=== PATIENT | male | born 1975 | race Caucasian/White ===

== ENCOUNTER 2020-10-10 11:17 | Outpatient (REF) | payer OTHER, SELFPAY ==
[2020-10-10 12:45] LABS: Basophils Percent Auto 0.3 % (0-2); Eosinophils Absolute Auto 0.1 X10*3/uL (0.0-0.4); Eosinophils Percent Auto 1.7 % (0-4); Red Cell Distribution Width 11.9 % (11.0-16.0)
[2020-10-10 12:47] LABS: Hematocrit 44.7 % (42-52); Imm Gran Abs Auto 0.03 X10*3/uL (0.00-0.03); Imm Gran Pct Auto 0.5 % (0.0-0.4); Lymphocytes Absolute Auto 2.1 X10*3/uL (1.2-4.9); Lymphocytes Percent Auto 35.7 % (20-40); Mean Corpuscular HGB Conc 35.8 g/dl (31.0-36.0); Mean Corpuscular Hemoglobin 31.5 pg (27.0-33.0); Mean Platelet Volume 13.4 fL (9.4-12.4); Monocytes Absolute Auto 0.5 X10*3/uL (0.1-1.2); Monocytes Percent Auto 8.1 % (2-11); Neutrophils Absolute Auto 3.1 X10*3/uL (2.0-8.3); Neutrophils Percent Auto 53.7 % (45-73); Platelet Count 126 X10*3/uL (160-400); Red Blood Count 5.08 X10*6/uL (4.60-5.80); White Blood Count 5.8 X10*3/uL (4.8-10.8)
[2020-10-10 13:18] LABS: Alanine Aminotransferase 55 U/L (0-40); Albumin Level 4.4 g/dL (3.5-5.0); Alkaline Phosphatase 73 U/L (39-117); Anion Gap 12 (12-20); Aspartate Amino Transferase 24 U/L (5-37); Bilirubin Total 0.5 mg/dL (0.0-1.0); Blood Urea Nitrogen 13 mg/dL (9-16); Calcium 9.5 mg/dL (8.4-10.2); Carbon Dioxide 28 mmol/L (22-29); Chloride 104 mmol/L (96-108); Cholesterol 190 mg/dL; Estimated Glomerular Filt Rate > 60; Glucose Random 139 mg/dL (60-115); HDL Cholesterol 30 mg/dL; LDL Cholesterol Calculated 113 mg/dl; Potassium 4.6 mmol/L (3.3-5.1); Sodium 139 mmol/L (135-145); Total Protein 7.8 g/dL (6.5-8.0); Triglycerides 239 mg/dL
[2020-10-10 13:41] LABS: Free T4 (Free Thyroxine) 0.88 ng/dL (0.71-1.85); Thyroid Stimulating Hormone 1.27 uIU/mL (0.32-4.0)
[2020-10-10 14:06] LABS: Folate 14.6 ng/mL (> or = 4.0); Vitamin B12 203 pg/mL (200-900)
[2020-10-10 14:26] LABS: Estimated Average Glucose 151 mg/dL; Hemoglobin A1c % 6.9 %
== END 2020-10-10 11:18 | disposition home or self-care (01) ==
LOC: HO.LAB 11:17
PROVIDERS: PCP Internal Medicine; Visit Provider Internal Medicine
DX: R73.02 Impaired glucose tolerance (oral) (principal); E78.00 Pure hypercholesterolemia, unspecified; I10 Essential (primary) hypertension; K21.9 Gastro-esophageal reflux disease without esophagitis
CPT/HCPCS: 36415; 80053; 80061; 82607; 82746; 83036; 84439; 84443; 85025

== ENCOUNTER 2021-03-12 08:07 | Outpatient (REF) | payer OTHER, SELFPAY ==
--- NOTE | ~2021-03-12 | US_ITS ---
EXAMINATION: US ABDOMEN COMPLETE CLINICAL INFORMATION: Other specified abnormal findings of blood chemistry. COMPARISON: CT abdomen and pelvis 09/01/2018. Ultrasound abdomen 02/08/2013. TECHNIQUE: Real-time imaging of the abdominal viscera. FINDINGS: PANCREAS: Normal. ABDOMINAL AORTA: The proximal, mid, and distal segments are normal in caliber. INFERIOR VENA CAVA: Visualized portions are normal. LIVER: The liver is normal in size. The liver contour is normal. There is increased liver echogenicity with areas of focal fatty sparing. No focal hepatic lesion. There is no intrahepatic biliary duct dilatation seen. GALLBLADDER: Gallbladder wall thickness measures 0.22 cm. The gallbladder is physiologically distended without evidence of stones, sludge, polyps, wall thickening or pericholecystic fluid. Previously visualized gallbladder polyp on 02/08/2013 exam is not visualized at this time. COMMON BILE DUCT: Normal in caliber measuring 0.3 cm in diameter. RIGHT KIDNEY: There is a complex anechoic cyst lower pole measuring 2.0 x 1.6 x 1.5 cm. Previously visualize simple cyst is not visualized at this time. No hydronephrosis or renal calculi. The kidney measures 12.5 cm in maximum dimension. LEFT KIDNEY: Normal. No hydronephrosis. No renal calculi or focal parenchymal lesions. The kidney measures 12.9 cm in maximum dimension. SPLEEN: Normal. The spleen measures 13.1 cm in maximum dimension. FREE FLUID: None. US/US abdomen complete IMPRESSION: Hepatic steatosis with areas of focal fatty sparing. No intrahepatic ductal interpretation. The gallbladder is unremarkable. No polyp seen at this time. Complex cyst lower pole right kidney. Previously a simple cyst was seen and is not visualized at this time.
[2021-03-12 11:51] LABS: Estimated Average Glucose 143 mg/dL; Hemoglobin A1c % 6.6 %
[2021-03-12 12:14] LABS: Alanine Aminotransferase 60 U/L (0-40); Albumin Level 4.2 g/dL (3.5-5.0); Alkaline Phosphatase 69 U/L (39-117); Anion Gap 10 (12-20); Aspartate Amino Transferase 21 U/L (5-37); Bilirubin Total 0.4 mg/dL (0.0-1.0); Blood Urea Nitrogen 12 mg/dL (9-16); Calcium 9.8 mg/dL (8.4-10.2); Carbon Dioxide 30 mmol/L (22-29); Chloride 105 mmol/L (96-108); Cholesterol 178 mg/dL; Estimated Glomerular Filt Rate > 60; Glucose Random 133 mg/dL (60-115); HDL Cholesterol 36 mg/dL; LDL Cholesterol Calculated 104 mg/dl; Potassium 4.3 mmol/L (3.3-5.1); Sodium 141 mmol/L (135-145); Total Protein 7.7 g/dL (6.5-8.0); Triglycerides 190 mg/dL
[2021-03-12 12:17] LABS: Creatinine Urine 200.14 mg/dL; Microalbum/Creatinine Ratio Ur 8.9 ug/mg cr
[2021-03-12 12:38] LABS: Folate 12.7 ng/mL (> or = 4.0); Vitamin B12 243 pg/mL (200-900)
== END 2021-03-12 08:08 | disposition home or self-care (01) ==
LOC: HO.HMGCX 08:07
PROVIDERS: PCP Internal Medicine; Visit Provider Internal Medicine
DX: R10.11 Right upper quadrant pain (principal); R79.89 Other specified abnormal findings of blood chemistry; E11.65 Type 2 diabetes mellitus with hyperglycemia; E78.00 Pure hypercholesterolemia, unspecified; E53.8 Deficiency of other specified B group vitamins
CPT/HCPCS: 36415; 76700; 80053; 80061; 82043; 82607; 82746; 83036

== ENCOUNTER → 2021-05-27 12:40 | Outpatient (BNVA) | payer OTHER, SELFPAY | PROVIDERS: PCP Internal Medicine | DX: N28.1 Cyst of kidney, acquired (principal); R73.03 Prediabetes; I10 Essential (primary) hypertension; E78.00 Pure hypercholesterolemia, unspecified; E55.9 Vitamin D deficiency, unspecified; E66.9 Obesity, unspecified; F17.210 Nicotine dependence, cigarettes, uncomplicated; Z68.37 Body mass index [BMI] 37.0-37.9, adult | CPT/HCPCS: 99202 ==

== ENCOUNTER 2021-07-31 09:35 | Outpatient (REF) | payer OTHER, SELFPAY ==
--- NOTE | ~2021-07-31 | XR_ITS ---
Indication: Disorders of the skin EXAMINATION: Bilateral knees. 2 views of left knee and 2 views of the right knee. Left knee; There is no acute fracture or dislocation. No effusion is seen. No significant degenerative change is identified. There is no bony erosion or osteopenia. No bony lesion. 2 views of the right knee show no suspicious finding. No effusion is seen. No underlying bony erosion or osteopenia. Joint spaces are fairly well-preserved. No bony lesion. XR/XR knee LT 2V IMPRESSION: No suspicious bony finding left or right knee
--- NOTE | ~2021-07-31 | XR_ITS ---
Indication: Disorders of the skin EXAMINATION: Bilateral knees. 2 views of left knee and 2 views of the right knee. Left knee; There is no acute fracture or dislocation. No effusion is seen. No significant degenerative change is identified. There is no bony erosion or osteopenia. No bony lesion. 2 views of the right knee show no suspicious finding. No effusion is seen. No underlying bony erosion or osteopenia. Joint spaces are fairly well-preserved. No bony lesion. XR/XR knee RT 2V IMPRESSION: No suspicious bony finding left or right knee
[2021-07-31 11:27] LABS: Estimated Average Glucose 146 mg/dL; Hemoglobin A1c % 6.7 %
[2021-07-31 11:39] LABS: Creatinine Urine 227.87 mg/dL
[2021-07-31 12:02] LABS: Alanine Aminotransferase 65 U/L (0-40); Alkaline Phosphatase 69 U/L (39-117); Anion Gap 13 (12-20); Aspartate Amino Transferase 23 U/L (5-37); Bilirubin Total 0.5 mg/dL (0.0-1.0); Blood Urea Nitrogen 12 mg/dL (9-16); Calcium 9.3 mg/dL (8.4-10.2); Carbon Dioxide 23 mmol/L (22-29); Chloride 106 mmol/L (96-108); Cholesterol 149 mg/dL; Estimated Glomerular Filt Rate > 60; Glucose Random 137 mg/dL (60-115); HDL Cholesterol 28 mg/dL; LDL Cholesterol Calculated 84 mg/dl; Potassium 4.4 mmol/L (3.3-5.1); Sodium 138 mmol/L (135-145); Total Protein 7.4 g/dL (6.5-8.0); Triglycerides 185 mg/dL
== END 2021-07-31 09:36 | disposition home or self-care (01) ==
LOC: HO.LAB 09:35
PROVIDERS: PCP Internal Medicine; Visit Provider Internal Medicine
DX: E11.65 Type 2 diabetes mellitus with hyperglycemia (principal); E78.00 Pure hypercholesterolemia, unspecified; L98.9 Disorder of the skin and subcutaneous tissue, unspecified
CPT/HCPCS: 36415; 73560; 80053; 80061; 83036

== ENCOUNTER → 2021-10-22 08:50 | Outpatient (BNVA) | payer OTHER, SELFPAY | PROVIDERS: PCP Internal Medicine; Visit Provider Dietitian, Registered | DX: E11.65 Type 2 diabetes mellitus with hyperglycemia (principal); Z71.3 Dietary counseling and surveillance | CPT/HCPCS: 97802 ==

== ENCOUNTER → 2021-12-04 09:28 | Outpatient (BNVA) | payer OTHER, SELFPAY | PROVIDERS: PCP Internal Medicine; Visit Provider Dietitian, Registered | DX: E11.65 Type 2 diabetes mellitus with hyperglycemia (principal); Z71.3 Dietary counseling and surveillance | CPT/HCPCS: 97803 ==

== ENCOUNTER 2021-12-27 07:47 | Outpatient (REF) | payer OTHER, SELFPAY ==
--- NOTE | ~2021-12-27 | US_ITS ---
EXAMINATION: US RETROPERITONEAL LIMITED (RENAL ONLY) CLINICAL INFORMATION: Cyst of kidney, acquired. COMPARISON: Ultrasound abdomen complete 03/12/2021. CT abdomen and pelvis 09/01/2018. TECHNIQUE: Real-time imaging of the kidneys. FINDINGS: RIGHT KIDNEY: 12.2 x 6.8 x 7.2 cm (SAG x AP x TRV). The kidney is normal in size, contour, and echogenicity. Renal cortical thickness is normal. There is a 1.7 x 1.6 x 1.8 cm hypoechoic lesion in the lower pole. This has peripheral rim calcification and acoustic shadowing. This contains internal echoes and it is uncertain whether this represents a complex cystic or solid lesion. This does not appear appreciably changed in size from prior exams. No renal calculi or hydronephrosis. LEFT KIDNEY: 12.8 x 7.9 x 6.2 cm (SAG x AP x TRV). The kidney is normal in size, contour, and echogenicity. Renal cortical thickness is normal. No calculi or focal parenchymal lesions. No hydronephrosis. US/US renal BI IMPRESSION: 1.7 x 1.6 x 1.8 cm hypoechoic lesion in the lower pole of the right kidney with peripheral calcification and acoustic shadowing. This has internal echoes and is uncertain whether this represents a complex cyst or solid lesion. Follow-up CT or MR I of the kidneys with and without contrast recommended.
== END 2021-12-27 07:48 | disposition home or self-care (01) ==
LOC: HO.US 07:47
DX: N28.1 Cyst of kidney, acquired (principal)
CPT/HCPCS: 76775

== ENCOUNTER 2022-01-06 15:41 | Outpatient (REF) | payer OTHER, SELFPAY | END 2022-01-06 15:42 | disposition home or self-care (01) | LOC: HO.LAB 15:41 | PROVIDERS: Visit Provider Urology | DX: N28.1 Cyst of kidney, acquired (principal); N20.0 Calculus of kidney | CPT/HCPCS: 99212 ==

== ENCOUNTER 2022-01-07 10:48 | Outpatient (REF) | payer OTHER, SELFPAY ==
[2022-01-07 11:03] LABS: MANUAL DIFF FLAG NO
[2022-01-07 11:34] LABS: Basophils Percent Auto 0.4 % (0-2); Eosinophils Absolute Auto 0.1 X10*3/uL (0.0-0.4); Eosinophils Percent Auto 1.3 % (0-4); Hematocrit 43.5 % (42.0-52.0); Hemoglobin 15.4 g/dl (14.0-18.0); Imm Gran Abs Auto 0.01 X10*3/uL (0.00-0.03); Imm Gran Pct Auto 0.2 % (0.0-0.4); Lymphocytes Percent Auto 37.4 % (20-40); Mean Corpuscular HGB Conc 35.4 g/dl (31.0-36.0); Mean Corpuscular Hemoglobin 30.7 pg (27.0-33.0); Mean Corpuscular Volume 86.7 fL (80.0-98.0); Mean Platelet Volume 12.9 fL (9.4-12.4); Monocytes Absolute Auto 0.5 X10*3/uL (0.1-1.2); Monocytes Percent Auto 8.3 % (2-11); Neutrophils Absolute Auto 2.8 x10*3/uL (2.0-8.3); Neutrophils Percent Auto 52.4 % (45-73); Platelet Count 137 X10*3/uL (160-400); Red Blood Count 5.02 X10*6/uL (4.60-5.80); Red Cell Distribution Width 11.9 % (11.0-16.0); White Blood Count 5.4 X10*3/uL (4.8-10.8)
[2022-01-07 11:47] LABS: Estimated Average Glucose 171 mg/dL; Hemoglobin A1c % 7.6 %
[2022-01-07 12:04] LABS: Alanine Aminotransferase 74 U/L (0-40); Albumin Level 4.4 g/dL (3.5-5.0); Alkaline Phosphatase 74 U/L (39-117); Anion Gap 15 (12-20); Aspartate Amino Transferase 30 U/L (5-37); Bilirubin Total 0.2 mg/dL (0.0-1.0); Blood Urea Nitrogen 19 mg/dL (9-16); Calcium 9.6 mg/dL (8.4-10.2); Carbon Dioxide 25 mmol/L (22-29); Chloride 102 mmol/L (96-108); Cholesterol 176 mg/dL; Estimated Glomerular Filt Rate > 60; Glucose Random 154 mg/dL (60-115); HDL Cholesterol 34 mg/dL; LDL Cholesterol Calculated 119 mg/dl; Potassium 4.8 mmol/L (3.3-5.1); Sodium 137 mmol/L (135-145); Total Protein 7.9 g/dL (6.5-8.0); Triglycerides 117 mg/dL
[2022-01-07 12:27] LABS: Free T4 (Free Thyroxine) 0.93 ng/dL (0.71-1.85); Thyroid Stimulating Hormone 1.23 uIU/mL (0.32-4.0)
[2022-01-07 12:34] LABS: Vitamin B12 246 pg/mL (200-900)
== END 2022-01-07 10:49 | disposition home or self-care (01) ==
LOC: HO.LAB 10:48
PROVIDERS: PCP Internal Medicine; Visit Provider Internal Medicine
DX: E11.65 Type 2 diabetes mellitus with hyperglycemia (principal); E78.00 Pure hypercholesterolemia, unspecified
CPT/HCPCS: 36415; 80053; 80061; 82607; 82746; 83036; 84439; 84443; 85025

== ENCOUNTER 2022-01-22 13:30 | Outpatient (REF) | payer OTHER, SELFPAY | END 2022-01-22 13:31 | disposition home or self-care (01) | LOC: HO.MRI 13:30 | PROVIDERS: Visit Provider Urology | DX: Z13.89 Encounter for screening for other disorder (principal) ==

== ENCOUNTER → 2022-02-20 15:19 | Outpatient (BNVA) | payer OTHER, SELFPAY | PROVIDERS: PCP Internal Medicine; Visit Provider Urology | DX: N28.1 Cyst of kidney, acquired (principal) | CPT/HCPCS: Q3014 ==

== ENCOUNTER 2022-11-28 11:38 | Outpatient (REF) | payer OTHER, SELFPAY ==
[2022-11-28 14:01] LABS: Alanine Aminotransferase 108 U/L (0-40); Albumin Level 4.5 g/dL (3.5-5.0); Alkaline Phosphatase 70 U/L (39-117); Anion Gap 15 (12-20); Aspartate Amino Transferase 55 U/L (5-37); Bilirubin Total 0.6 mg/dL (0.0-1.0); Blood Urea Nitrogen 11 mg/dL (9-16); Calcium 9.9 mg/dL (8.4-10.2); Carbon Dioxide 25 mmol/L (22-29); Chloride 102 mmol/L (96-108); Cholesterol 161 mg/dL (<200); Estimated Glomerular Filt Rate > 60; Glucose Random 182 mg/dL (60-115); HDL Cholesterol 35 mg/dL (>40); LDL Cholesterol Calculated 87 mg/dL (<100); Potassium 4.7 mmol/L (3.3-5.1); Sodium 137 mmol/L (135-145); Total Protein 8.3 g/dL (6.5-8.0); Triglycerides 198 mg/dL (<150)
[2022-11-28 14:10] LABS: Estimated Average Glucose 200 mg/dL; Hemoglobin A1c % 8.6 % (<6.0)
== END 2022-11-28 11:39 | disposition home or self-care (01) ==
LOC: HO.LAB 11:38
PROVIDERS: PCP Internal Medicine; Visit Provider Internal Medicine
DX: E78.00 Pure hypercholesterolemia, unspecified (principal)
CPT/HCPCS: 36415; 80053; 80061; 83036

== ENCOUNTER 2022-11-28 15:37 | Outpatient (AMB) | payer OTHER, SELFPAY ==
[2022-11-28 15:44] VITALS: BP 148/70; PULSE 77; O2SAT 99; BMI 39.0
--- NOTE | 2022-11-28 15:44 | MHC.PC.OV ---
Vital Signs 11/28/22 15:44 Height 5 ft 10 in Weight 272 lb BMI 39.0 BP 148/70 H Blood Pressure Location Lt brachial Position Sitting Pulse 77 Pulse Source Pulse Oximeter Pulse Oximetry (%) 99 Oxygen Delivery Method Room Air Intake Visit Reasons: DM [employer] Tech: Not Required per policy Accompanied by: Self / Same As Patient Allergies metformin Adverse Reaction (Intermediate, Verified 11/28/22 15:45) Diarrhea Medication List - Last Reconciled 11/28/22 by Devan Claros MD alprazolam 0.5 mg PO DAILY PRN blood pressure monitor (Blood Pressure Kit) As directed blood sugar diagnostic (FreeStyle Lite Strips) As directed check the BS QD blood-glucose meter (FreeStyle Lite Meter kit) As directed bupropion HCl (Wellbutrin XL) 150 mg PO QAM 30 days citalopram 20 mg PO DAILY 90 days cyanocobalamin (vitamin B-12) 1,000 mcg PO DAILY 90 days diclofenac sodium 1% (Voltaren Arthritis Pain) 4 grams topical QID empagliflozin (Jardiance) 10 mg PO DAILY glipizide ER 10 mg PO DAILY lancets (FreeStyle Lancets) As directed check BS QD lisinopril 30 mg PO DAILY meloxicam 15 mg PO DAILY omeprazole 20 mg PO DAILY sennosides-docusate sodium 8.6-50 mg (Senna-S) 1 tab-cap PO BEDTIME 90 days trazodone 50 mg PO BEDTIME PRN Tobacco use date assessed: 04/28/22 Dental Screening Dental Screen Date: 11/28/22 Did you have a dental visit in the last 12 months?: Yes Did you have a dental problem in the last 6 months where you did not have access to dental care?: No Was dental information given to patient?: Patient has dentist HPI DM HPI Details 47-year-old obese male with diabetes mellitus GERD hypertension hypercholesterolemia last seen in August 2022. Patient is here for follow-up. stopped soda- still eating honeybuns, drinking 3 coffee. decline increase in BP med PFSH Medical History Lumbar degenerative disc disease Vitamin D deficiency Tobacco abuse GERD (gastroesophageal reflux disease) Hypertension Hypercholesterolemia Obesity (BMI 30-39.9) Surgical History History of rectal surgery Family History Father Lung cancer Alcohol abuse Social History Housing: House Alcohol intake: never Patient Tobacco Use Status: Former Tobacco user Tobacco use type: Cigarette Cigarette Packs Per Day: 1 e-Cigarette/Vaping Use: Never Used Second Hand Smoke Exposure: Yes service: No Current occupational status: employed Cognitive needs: No Hearing needs: No Vision needs: Yes (reading glasses) Questionnaire PHQ-9 Over the last 2 weeks, how often have you been bothered by any of the following problems? 1. Little interest or pleasure in doing things: more than half the days 2. Feeling down, depressed, or hopeless: more than half the days 3. Trouble falling or staying asleep, or sleeping too much: more than half the days 4. Feeling tired or having little energy: more than half the days 5. Poor appetite or overeating: not at all 6. Feeling bad about yourself - or that you are a failure or have let yourself or your family down: not at all 7. Trouble concentrating on things, such as reading the newspaper or watching television: not at all 8. Moving or speaking so slowly that other people could have noticed. Or the opposite - being so fidgety or restless that you have been moving around a lot more than usual: not at all 9. Thoughts that you would be better off or of hurting yourself in some way: not at all Total score: 8 Depression Screening Interpretation: Positive Source: Developed by Drs. Ezequiel Esqueda, Alejandra Rodriguez, Neel Yanez and colleagues, with an educational jayme from [employer]. Thrive Questionnaire Date Thrive assessed: 04/28/22 AUDIT C Alcohol Use Questionnaire (AUDIT-C) 1. How often do you have a drink containing alcohol?: Never 3. How often do you have six or more drinks on one occasion?: Never Total Score: 0 STEPH-7 AMB Questionnaire STEPH-7 Date STEPH - 7 assessed: 04/28/22 Source: Developed by Drs. Ezequiel Esqueda, Alejandra B.Neel Voss and colleagues, with an educational jayme from [employer]. Physical exam (Primary Care) Vital Signs: Last Vital Signs Pulse 77 11/28/22 15:44 BP 148/70 H 11/28/22 15:44 Pulse Ox 99 11/28/22 15:44 Oxygen Delivery Method Room Air 11/28/22 15:44 BMI result Body Mass Index 39.0 Tobacco/Smoking Status: Tobacco use Status Tobacco use date assessed 04/28/22 11/28/22 15:45 Patient Tobacco Use Status Former Tobacco user 11/28/22 15:45 Tobacco use type Cigarette 11/28/22 15:45 e-Cigarette/Vaping Use Never Used 11/28/22 15:45 PHQ-9: PHQ-9 Score PHQ-9: Total score 8 11/28/22 15:45 Depression Screening Interpretation: Positive Thrive Assessment: Date of Thrive Assessment Date Thrive assessed 04/28/22 11/28/22 15:45 Const General: alert; No acute distress Eyes Conjunctivae: conjunctivae normal Resp Auscultation: clear to auscultation bilaterally Cardio Rate: regular rate Rhythm: regular rhythm GI Inspection: Yes normal to inspection Extrem General: Yes normal to inspection and No edema Assessment and Plan Assessment & Plan (1) Type 2 diabetes mellitus with hyperglycemia: Code(s): E11.65 - Type 2 diabetes mellitus with hyperglycemia Plan: Decrease the amount of carbohydrate intake, pasta, bread, rice and potatoes are all sugar and that is aside from all the sweet stuff, remember that fruits are good but they are Sweet also. Hemoglobin A1c goal of less than 6.5. Patient is presently on glipizide 10 mg once a day only (2) GERD (gastroesophageal reflux disease): Code(s): K21.9 - Gastro-esophageal reflux disease without esophagitis Qualifiers: Esophagitis presence: without esophagitis Qualified Code(s): K21.9 - Gastro-esophageal reflux disease without esophagitis Plan: Avoid the foods that causes that usually spicy foods, tomato products, juices, coffee, soda and foods that your sensitive to. After eating do not lie down, allow 3-4 hours before in lie down. And keep the head of bed above 30 degrees to avoid the acid from going up. On omeprazole (3) Hypertension: Code(s): I10 - Essential (primary) hypertension Qualifiers: Hypertension type: essential hypertension Qualified Code(s): I10 - Essential (primary) hypertension Plan: Continue with blood pressure medication. Decrease salt intake and exercise patient is taking lisinopril 30 mg once a day (4) Hypercholesterolemia: Code(s): E78.00 - Pure hypercholesterolemia, unspecified Plan: Avoid fried foods, chicken skin, eggs, butter margarine, pastries and meat. Be it pork or beef they have a lot of cholesterol LDL goal of less than 100. On atorvastatin 10 mg once a day (5) Obesity (BMI 30-39.9): Code(s): E66.9 - Obesity, unspecified Plan: Diet and exercise (6) Generalized anxiety disorder: Comment: Patient did talk to the therapist but due to cost has stop(April 2022) Code(s): F41.1 - Generalized anxiety disorder Plan: Continue with therapy discussed the importance of counseling (7) Fatty liver: Code(s): K76.0 - Fatty (change of) liver, not elsewhere classified Plan: Low-fat diet and exercise (8) Colon cancer screening: Code(s): Z12.11 - Encounter for screening for malignant neoplasm of colon Orders: Referrals Gastroenterology Referral K21.9 - Gastro-esophageal reflux disease without esophagitis, Z12.11 - Encounter for screening for malignant neoplasm of colon Medications: New empagliflozin (Jardiance) 10 mg PO DAILY 30 tabs 5RF E11.65 - Type 2 diabetes mellitus with hyperglycemia Changed From lisinopril 30 mg PO DAILY 90 tabs 1RF I10 - Essential (primary) hypertension To lisinopril 40 mg PO DAILY 90 tabs 1RF I10 - Essential (primary) hypertension Refilled citalopram 20 mg PO DAILY 90 days 90 tabs 1RF F32.9 - Major depressive disorder, single episode, unspecified, F41.9 - Anxiety disorder, unspecified Discontinued atorvastatin Discontinued Reason: Patient Refused 10 mg PO BEDTIME 90 tabs 1RF E78.00 - Pure hypercholesterolemia, unspecified Coding Level of Care Code Est Pt Level 4 (52699) Diagnoses Type 2 diabetes mellitus with hyperglycemia E11.65 Gastroesophageal reflux disease without esophagitis K21.9 Esophagitis presence: without esophagitis Essential hypertension I10 Hypertension type: essential hypertension Hypercholesterolemia E78.00 Obesity (BMI 30-39.9) E66.9 Generalized anxiety disorder F41.1 Fatty liver K76.0 Colon cancer screening Z12.11
== END 2022-11-28 16:47 | disposition home or self-care (01) ==
PROVIDERS: PCP Internal Medicine; Visit Provider Internal Medicine
DX: E11.65 Type 2 diabetes mellitus with hyperglycemia (principal); K21.9 Gastro-esophageal reflux disease without esophagitis; I10 Essential (primary) hypertension; Z68.39 Body mass index [BMI] 39.0-39.9, adult; E78.00 Pure hypercholesterolemia, unspecified; F41.1 Generalized anxiety disorder; E66.9 Obesity, unspecified; K76.0 Fatty (change of) liver, not elsewhere classified; Z12.11 Encounter for screening for malignant neoplasm of colon
CPT/HCPCS: 99214

== ENCOUNTER 2023-03-13 15:34 | Outpatient (AMB) | payer OTHER, SELFPAY ==
--- NOTE | 2023-03-13 15:41 | MHC.PC.OV ---
Vital Signs 03/13/23 15:42 Height 5 ft 10 in Weight 276 lb BMI 39.6 BP 140/80 H Blood Pressure Location Lt brachial Position Sitting Pulse 71 Pulse Source Pulse Oximeter Temp Source Skin Pulse Oximetry (%) 97 Oxygen Delivery Method Room Air Intake Visit Reasons: 3 Months F/U-DM Allergies metformin Adverse Reaction (Intermediate, Verified 11/28/22 15:45) Diarrhea Medication List - Last Reconciled 03/13/23 by Devan Patel Po, alprazolam 0.5 mg PO DAILY PRN blood pressure monitor (Blood Pressure Kit) As directed blood sugar diagnostic (FreeStyle Lite Strips) As directed check the BS QD blood-glucose meter (FreeStyle Lite Meter kit) As directed bupropion HCl (Wellbutrin XL) 150 mg PO QAM 30 days citalopram 40 mg PO DAILY 90 days cyanocobalamin (vitamin B-12) 1,000 mcg PO DAILY 90 days diclofenac sodium 1% (Voltaren Arthritis Pain) 4 grams topical QID empagliflozin 25 mg PO DAILY famotidine (Pepcid) 20 mg PO BEDTIME glipizide ER 10 mg PO DAILY lancets (FreeStyle Lancets) As directed check BS QD lisinopril 40 mg PO DAILY meloxicam 15 mg PO DAILY sennosides-docusate sodium 8.6-50 mg (Senna-S) 1 tab-cap PO BEDTIME 90 days trazodone 50 mg PO BEDTIME PRN Tobacco use date assessed: 03/13/23 HPI 3 Months F/U-DM HPI Details 47-year-old obese male with diabetes mellitus GERD hypertension hypercholesterolemia and generalized anxiety disorder last seen in November 2022. Patient is here for follow-up. states GI did not remind patient. Due to indiscriminate eating patient's weight coming up as well as blood sugars discussed the need to exercise regularly discussed the need to stop drinking soda as well as choose the foods to eat. [facility] Medical History Lumbar degenerative disc disease Vitamin D deficiency Tobacco abuse GERD (gastroesophageal reflux disease) Hypertension Hypercholesterolemia Obesity (BMI 30-39.9) Surgical History History of rectal surgery Family History Father Lung cancer Alcohol abuse Social History Housing: House Alcohol intake: never Patient Tobacco Use Status: Former Tobacco user Tobacco use type: Cigarette Cigarette Packs Per Day: 1 e-Cigarette/Vaping Use: Never Used Second Hand Smoke Exposure: Yes service: No Current occupational status: employed Cognitive needs: No Hearing needs: No Vision needs: Yes (reading glasses) Questionnaire PHQ-9 Over the last 2 weeks, how often have you been bothered by any of the following problems? 1. Little interest or pleasure in doing things: more than half the days 2. Feeling down, depressed, or hopeless: more than half the days 3. Trouble falling or staying asleep, or sleeping too much: nearly every day (trouble sleeping) 4. Feeling tired or having little energy: several days 5. Poor appetite or overeating: several days 6. Feeling bad about yourself - or that you are a failure or have let yourself or your family down: not at all 7. Trouble concentrating on things, such as reading the newspaper or watching television: several days 8. Moving or speaking so slowly that other people could have noticed. Or the opposite - being so fidgety or restless that you have been moving around a lot more than usual: not at all 9. Thoughts that you would be better off or of hurting yourself in some way: not at all Total score: 10 Depression Screening Interpretation: Positive Depression Screening Done: Yes Source: Developed by Drs. Ezequiel Esqueda, Alejandra Rodriguze, Neel Yanez and colleagues, with an educational jayme from [employer]. Thrive Questionnaire Date Thrive assessed: 04/28/22 STEPH-7 AMB Questionnaire STEPH-7 Date STEPH - 7 assessed: 03/13/23 Feeling nervous, anxious, or on edge: 1 = Several days Not being able to stop or control worryin = Several days Worrying too much about different things: 1 = Several days Trouble relaxin = Several days Being so restless that it is hard to sit still: 1 = Several days Becoming easily annoyed or irritable: 1 = Several days Source: Developed by Drs. Ezequiel Esqueda, Alejandra Rodriguez, Neel Yanez and colleagues, with an educational jayme from [employer]. Physical exam (Primary Care) Vital Signs: Last Vital Signs Pulse 71 03/13/23 15:42 BP 140/80 H 03/13/23 15:42 Pulse Ox 97 03/13/23 15:42 Oxygen Delivery Method Room Air 03/13/23 15:42 BMI result Body Mass Index 39.6 Tobacco/Smoking Status: Tobacco use Status Tobacco use date assessed 03/13/23 03/13/23 15:49 Patient Tobacco Use Status Former Tobacco user 03/13/23 15:41 Tobacco use type Cigarette 03/13/23 15:41 e-Cigarette/Vaping Use Never Used 03/13/23 15:41 PHQ-9: PHQ-9 Score PHQ-9: Total score 10 03/13/23 15:49 Depression Screening Interpretation: Positive Thrive Assessment: Date of Thrive Assessment Date Thrive assessed 04/28/22 03/13/23 15:41 Const General: alert; No acute distress Eyes Conjunctivae: conjunctivae normal Resp Auscultation: clear to auscultation bilaterally Cardio Rate: regular rate Rhythm: regular rhythm GI Inspection: Yes normal to inspection Extrem General: Yes normal to inspection and No edema Results AMB Hemoglobin A1c AMB Hemoglobin A1c 9.0 % Last Edit by NAYANA Jarquin on 03/13/23 15:50 Results Reviewed Results Reviewed: Laboratory Last Values Hgb A1c (Clinic) 9.0 % (4.0-6.0) H 03/13/23 15:41 Assessment and Plan Assessment & Plan (1) Colon cancer screening: Code(s): Z12.11 - Encounter for screening for malignant neoplasm of colon Plan: Patient was scheduled with the mixing machine feeder but did not show up. Reminded and patient was given the telephone number of gastroenterology (2) Type 2 diabetes mellitus with hyperglycemia: Code(s): E11.65 - Type 2 diabetes mellitus with hyperglycemia Plan: Decrease the amount of carbohydrate intake, pasta, bread, rice and potatoes are all sugar and that is aside from all the sweet stuff, remember that fruits are good but they are Sweet also. Hemoglobin A1c goal of less than 6.5 patient is presently on glipizide 10 mg once a day patient had diarrhea with metformin.. Increase Jardiance 25 mg once a day advised patient to keep well hydrated and eat better. (3) Hypertension: Code(s): I10 - Essential (primary) hypertension Qualifiers: Hypertension type: essential hypertension Qualified Code(s): I10 - Essential (primary) hypertension Plan: Continue with blood pressure medication. Decrease salt intake and exercise patient takes lisinopril 40 mg once a day (4) Hypercholesterolemia: Code(s): E78.00 - Pure hypercholesterolemia, unspecified Plan: Avoid fried foods, chicken skin, eggs, butter margarine, pastries and meat. Be it pork or beef they have a lot of cholesterol LDL goal of less than 100 and triglyceride of less than 150 November 2022 at goal (5) Obesity (BMI 30-39.9): Code(s): E66.9 - Obesity, unspecified Plan: Diet and exercise (6) Generalized anxiety disorder: Comment: Patient did talk to the therapist but due to cost has stop(April 2022) Code(s): F41.1 - Generalized anxiety disorder Plan: Patient has stopped counseling and would like to just remain on the medications. Discussed about aerobic exercise to get mind off of anxiety Orders: Orders AMB Hemoglobin A1c Today E11.65 - Type 2 diabetes mellitus with hyperglycemia Medications: New famotidine (Pepcid) 20 mg PO BEDTIME 30 tabs 4RF K21.9 - Gastro-esophageal reflux disease without esophagitis Changed From empagliflozin (Jardiance) 10 mg PO DAILY 30 tabs 5RF E11.65 - Type 2 diabetes mellitus with hyperglycemia To empagliflozin 25 mg PO DAILY 30 tabs 5RF E11.65 - Type 2 diabetes mellitus with hyperglycemia From citalopram 20 mg PO DAILY 90 days 90 tabs 1RF F32.9 - Major depressive disorder, single episode, unspecified, F41.9 - Anxiety disorder, unspecified To citalopram 40 mg PO DAILY 90 days 90 tabs 1RF F32.9 - Major depressive disorder, single episode, unspecified, F41.9 - Anxiety disorder, unspecified Refilled trazodone 50 mg PO BEDTIME PRN 90 tabs 3RF sleep G47.00 - Insomnia, unspecified Discontinued omeprazole Discontinued Reason: Change Referral Type 20 mg PO DAILY 90 caps 1RF K21.9 - Gastro-esophageal reflux disease without esophagitis Coding Level of Care Code Est Pt Level 4 (32563) Diagnoses Colon cancer screening Z12.11 Type 2 diabetes mellitus with hyperglycemia E11.65 Essential hypertension I10 Hypertension type: essential hypertension Hypercholesterolemia E78.00 Obesity (BMI 30-39.9) E66.9 Generalized anxiety disorder F41.1
[2023-03-13 15:42] VITALS: BP 140/80; PULSE 71; O2SAT 97; BMI 39.6
== END 2023-03-13 16:26 | disposition home or self-care (01) ==
PROVIDERS: PCP Internal Medicine; Visit Provider Internal Medicine
DX: E11.65 Type 2 diabetes mellitus with hyperglycemia (principal); E66.9 Obesity, unspecified; Z12.11 Encounter for screening for malignant neoplasm of colon; Z68.39 Body mass index [BMI] 39.0-39.9, adult; I10 Essential (primary) hypertension; E78.00 Pure hypercholesterolemia, unspecified; F41.1 Generalized anxiety disorder
CPT/HCPCS: 83036; 99214

== ENCOUNTER 2023-05-11 12:17 | Outpatient (AMB) | payer OTHER, SELFPAY ==
--- NOTE | 2023-05-11 12:25 | A.OFFVIS_ITS ---
Intake Vital Signs 05/11/23 12:27 Height 5 ft 10 in Weight 265 lb BMI 38.0 BP 146/70 H Blood Pressure Location Lt brachial Position Sitting Pulse 77 Intake Visit Reasons: Colonoscopy Screening Intake Note: Patient 1st pre Colonoscopy screening. Patient abdominal pain with bloating, heartburn with burning sensation, and denies any other GI issues. 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 Accompanied by: Self / Same As Patient Allergies metformin Adverse Reaction (Intermediate, Verified 05/11/23 12:25) Diarrhea HPI HPI Comments History of Present Illness Details 47-year-old male referred for index scre ening colonoscopy He has an inconsistent bowel pattern-with bowel regimen-abdominal bloating- Jardiance- loose stool History of anal fissures He has a good appetite-acid reflux famotidine-has a lot of acid-he drinks a lot of soda- especially coke- with sugar He has anxiety-he says he freaks himself out alot- hes flying to [place] tomorrow- seeing-pcp No cardiac or respiratory issues No nausea, vomiting hematemesis, hematochezia fever chills [facility] Medical History (Updated 05/11/23 @ 13:25 by Kelly Lambert PA-C) Lumbar degenerative disc disease Vitamin D deficiency Tobacco abuse GERD (gastroesophageal reflux disease) Hypertension Hypercholesterolemia Obesity (BMI 30-39.9) Surgical History History of rectal surgery Family History Father Lung cancer Alcohol abuse Social History Housing: House Alcohol intake: never Patient Tobacco Use Status: Former Tobacco user Tobacco use type: Cigarette Cigarette Packs Per Day: 1 e-Cigarette/Vaping Use: Never Used Second Hand Smoke Exposure: Yes service: No Current occupational status: employed Cognitive needs: No Hearing needs: No Vision needs: Yes (reading glasses) Review of Systems Const All systems reviewed & are unremarkable except as noted in HPI and below Card Denies chest pain and Denies dyspnea Resp Denies dyspnea GI Reports abdominal pain, Denies hematochezia, Reports constipation, Reports heartburn, Denies diarrhea, Reports nausea and Denies vomiting Psych Reports anxiety Physical Exam Vital Signs: Last Vital Signs Pulse 77 05/11/23 12:27 BP 146/70 H 05/11/23 12:27 BMI result Body Mass Index 38.0 Const General: cooperative, healthy appearing, comfortable and anxious Orientation/consciousness: patient oriented x3 Limitations: language barrier Eyes Sclerae: sclerae normal Resp Effort & Inspection: normal respiratory effort and able to speak in complete sentences Auscultation: clear to auscultation bilaterally, no rales, no rhonchi and no wheezes Cardio Rate: regular rate Rhythm: regular rhythm Heart sounds: S1 normal heart sound present and S2 normal heart sound present GI Palpation (GI): Soft to palpation and nontender Auscultation: normal bowel sounds Skin General skin exam: no rashes or lesions noted Neuro General: patient oriented x3 Extrem General: Yes full ROM Psych Appearance: grossly normal and well kempt Mental Status: mental status grossly normal Speech and movement: Normal speech and movement present Affect: Animated affect present and Anxious affect present Attitude: cooperative Assessment & Plan Assessment & Plan (1) GERD (gastroesophageal reflux disease): Comment: Reflux precautions reviewed EGDr/o PUD, nonulcer dyspepsia, esophagitis other endoscopic findings to account for her symptoms Code(s): K21.9 - Gastro-esophageal reflux disease without esophagitis Qualifiers: Esophagitis presence: without esophagitis Qualified Code(s): K21.9 - Gastro-esophageal reflux disease without esophagitis Plan: EGD PPI Reflux precautions (2) Constipation: Comment: Inconsistent stool pattern Code(s): K59.00 - Constipation, unspecified Plan: Maintain high-fiber diet High-fiber supplement (3) Encounter for screening colonoscopy: Code(s): Z12.11 - Encounter for screening for malignant neoplasm of colon Plan: Index screening colonoscopy Plan EGD/ colon-no diabetes medications morning of Jardiance-stop x 3 days prior Please review med list before procedure prep day- ppi anti gas Orders: Orders EGD/Parmelee Combo - GI Use Only Today K21.9 - Gastro-esophageal reflux disease without esophagitis, Z12.11 - Encounter for screening for malignant neoplasm of colon Medications: New polyethylene glycol 3350 (Miralax) Take as directed by mouth the day before your procedure. 238 grams PO ONCE 1 day PRN 238 grams 0RF laxative effect bisacodyl (Dulcolax (bisacodyl)) Day before procedure @ 12 noon Take 4 tablets by mouth followed by large glass of water 20 mg (4 x 5 mg) PO ONCE 1 day PRN 4 tabs 0RF colonoscopy prep Z12.11 - Encounter for screening for malignant neoplasm of colon pantoprazole 20 mg PO QAM 30 tabs 6RF simethicone (Gas Relief (simethicone)) 125 mg PO TID-QID PRN 90 tabs 2RF abdominal distention Patient Instructions: Maintain high-fiber diet Fiber supplement Reflux precautions reviewed Dietary modifications-discussed at length Omeprazole 20 mg daily-on empty stomach Simethicone-avoid culprits to include soda-certainly will have adverse effects with diabetes EGD and colonoscopy MiraLax Gatorade prep Omit Jardiance for 3 days prior As well no other diabetes medications morning See PCP re anxiety Encouraged to call with questions or concerns Coding Level of Care Code New Pt Level 3 (20015) Diagnoses Gastroesophageal reflux disease without esophagitis K21.9 Esophagitis presence: without esophagitis Constipation K59.00 Encounter for screening colonoscopy Z12.11 Time Spent (min) 30
[2023-05-11 12:27] VITALS: BP 146/70; PULSE 77; BMI 38.0
== END 2023-05-11 13:15 | disposition home or self-care (01) ==
PROVIDERS: PCP Internal Medicine; Visit Provider Physician Assistant
DX: K21.9 Gastro-esophageal reflux disease without esophagitis (principal); K59.00 Constipation, unspecified; Z12.11 Encounter for screening for malignant neoplasm of colon
CPT/HCPCS: 99203

== ENCOUNTER → 2023-05-11 12:17 | Outpatient (BNVA) | payer OTHER, SELFPAY | PROVIDERS: PCP Internal Medicine; Visit Provider Physician Assistant | DX: Z12.11 Encounter for screening for malignant neoplasm of colon (principal); K21.9 Gastro-esophageal reflux disease without esophagitis; K59.00 Constipation, unspecified | CPT/HCPCS: 99202 ==

== ENCOUNTER 2023-06-15 10:55 | Outpatient (AMB) | payer OTHER, SELFPAY ==
[2023-06-15 11:02] VITALS: BP 162/88; PULSE 87; O2SAT 98; BMI 38.3
--- NOTE | 2023-06-15 11:02 | MHC.PC.OV ---
Vital Signs 06/15/23 11:02 Height 5 ft 10 in Weight 267 lb BMI 38.3 BP 162/88 H Blood Pressure Location Lt brachial Position Sitting Pulse 87 Pulse Source Pulse Oximeter Pulse Oximetry (%) 98 Oxygen Delivery Method Room Air Intake Visit Reasons: 3mth f/u Allergies metformin Adverse Reaction (Intermediate, Verified 06/15/23 11:02) Diarrhea Medication List - Last Reconciled 06/15/23 by Devan Claros, alprazolam 0.5 mg PO DAILY PRN bisacodyl (Dulcolax (bisacodyl)) 20 mg (4 x 5 mg) PO ONCE PRN 1 day blood pressure monitor (Blood Pressure Kit) As directed blood sugar diagnostic (FreeStyle Lite Strips) As directed check the BS QD blood-glucose meter (FreeStyle Lite Meter kit) As directed bupropion HCl XL (Wellbutrin XL) 150 mg PO QAM 30 days citalopram 40 mg PO DAILY 90 days cyanocobalamin (vitamin B-12) 1,000 mcg PO DAILY 90 days diclofenac sodium 1% (Voltaren Arthritis Pain) 4 grams topical QID empagliflozin 25 mg PO DAILY famotidine (Pepcid) 20 mg PO BEDTIME glipizide ER 10 mg PO DAILY lancets (FreeStyle Lancets) As directed check BS QD lisinopril 40 mg PO DAILY meloxicam 15 mg PO DAILY pantoprazole 20 mg PO QAM polyethylene glycol 3350 (Miralax) 238 grams PO ONCE PRN 1 day sennosides-docusate sodium 8.6-50 mg (Senna-S) 1 tab-cap PO BEDTIME 90 days simethicone (Gas Relief (simethicone)) 125 mg PO TID-QID PRN trazodone 50 mg PO BEDTIME PRN Tobacco use date assessed: 03/13/23 Dental Screening Dental Screen Date: 06/15/23 Did you have a dental visit in the last 12 months?: Yes Did you have a dental problem in the last 6 months where you did not have access to dental care?: No Was dental information given to patient?: Patient has dentist HPI 3mth f/u HPI Details 47-year-old obese male with uncontrolled diabetes mellitus hypertension hypercholesterolemia generalized anxiety disorder last seen in March 2023. Patient was referred Gastroenterology for colon cancer screening. Patient's schedule with the Gastroenterology for colon test in September 2023. Meanwhile the last complete blood work was done in November for diabetes. patient was not taking glipizide and just noted 3 weeks ago start with glipizide. advised to monitor the BP right now patient is very anxious continues to have indiscriminate eating like drinking soda and discussed importance of avoiding this discussed patient about exercise discussed patient about eating healthy and keeping active in avoiding certain things. [facility] Medical History (Updated 06/15/23 @ 11:43 by Devan Claros MD) Colon cancer screening Encounter for screening colonoscopy Lumbar degenerative disc disease Vitamin D deficiency Tobacco abuse GERD (gastroesophageal reflux disease) Hypertension Hypercholesterolemia Obesity (BMI 30-39.9) Surgical History History of rectal surgery Family History Father Lung cancer Alcohol abuse Social History Housing: House Alcohol intake: never Patient Tobacco Use Status: Former Tobacco user Tobacco use type: Cigarette Cigarette Packs Per Day: 1 e-Cigarette/Vaping Use: Never Used Second Hand Smoke Exposure: Yes service: No Current occupational status: employed Cognitive needs: No Hearing needs: No Vision needs: Yes (reading glasses) Questionnaire PHQ-9 Over the last 2 weeks, how often have you been bothered by any of the following problems? 1. Little interest or pleasure in doing things: more than half the days 2. Feeling down, depressed, or hopeless: more than half the days 3. Trouble falling or staying asleep, or sleeping too much: nearly every day (trouble sleeping) 4. Feeling tired or having little energy: several days 5. Poor appetite or overeating: several days 6. Feeling bad about yourself - or that you are a failure or have let yourself or your family down: not at all 7. Trouble concentrating on things, such as reading the newspaper or watching television: several days 8. Moving or speaking so slowly that other people could have noticed. Or the opposite - being so fidgety or restless that you have been moving around a lot more than usual: not at all 9. Thoughts that you would be better off or of hurting yourself in some way: not at all Total score: 10 Depression Screening Interpretation: Positive Depression Screening Done: Yes Source: Developed by Drs. Ezequiel Esqueda, Alejandra Rodriguez, Neel Yanez and colleagues, with an educational jayme from [employer]. Thrive Questionnaire Date Thrive assessed: 06/15/23 I am a: Patient What is your living situation today?: I have a steady place to live Within the past 12 months, did the food you bought not last and you didn't have the money to get more?: Never true Within the past 12 months, did you worry whether your food would run out before you got money to buy more?: Never true Do you have trouble paying for medicines?: No Do you have trouble getting transportation to medical appointments?: No Do you have trouble paying your heating and electricity bill?: No Do you have trouble taking care of your child, family member or friend?: No Do you have trouble with day-to-day activities such as bathing, preparing meals, shopping, managing finances, etc.?: No Are you currently unemployed and looking for a job?: No Are you interested in more education?: No Currently or been in a relationship where the following occur: no concerns reported THRIVE Score: 0 AUDIT C Alcohol Use Questionnaire (AUDIT-C) 1. How often do you have a drink containing alcohol?: Never 3. How often do you have six or more drinks on one occasion?: Never Total Score: 0 STEPH-7 AMB Questionnaire STEPH-7 Date STEPH - 7 assessed: 06/15/23 Feeling nervous, anxious, or on edge: 1 = Several days Not being able to stop or control worryin = Several days Worrying too much about different things: 1 = Several days Trouble relaxin = Several days Being so restless that it is hard to sit still: 1 = Several days Becoming easily annoyed or irritable: 1 = Several days Feeling afraid as if something awful might happen: 1 = Several days Total STEPH-7 score (0-4 normal; 5-9 mild; 10-14 moderate; 15-21 severe): 7 Source: Developed by Alejandra Torres Kurt Kroenke and colleagues, with an educational jayme from [employer]. Physical exam (Primary Care) Vital Signs: Last Vital Signs Pulse 87 06/15/23 11:02 BP 162/88 H 06/15/23 11:02 Pulse Ox 98 06/15/23 11:02 Oxygen Delivery Method Room Air 06/15/23 11:02 BMI result Body Mass Index 38.3 Tobacco/Smoking Status: Tobacco use Status Tobacco use date assessed 03/13/23 06/15/23 11:04 Patient Tobacco Use Status Former Tobacco user 06/15/23 11:04 Tobacco use type Cigarette 06/15/23 11:04 e-Cigarette/Vaping Use Never Used 06/15/23 11:04 PHQ-9: PHQ-9 Score PHQ-9: Total score 10 06/15/23 11:17 Depression Screening Interpretation: Positive Thrive Assessment: Date of Thrive Assessment Date Thrive assessed 06/15/23 06/15/23 11:04 Currently or been in a relationship where the following occur: no concerns reported Const General: alert; No acute distress Eyes Conjunctivae: conjunctivae normal Resp Auscultation: clear to auscultation bilaterally Cardio Rate: regular rate Rhythm: regular rhythm GI Inspection: Yes normal to inspection Extrem General: Yes normal to inspection and No edema Results AMB Hemoglobin A1c AMB Hemoglobin A1c 9.7 % Last Edit by Yennifer Natarajan CMA on 06/15/23 11:18 Results Reviewed Results Reviewed: Laboratory Last Values Hgb A1c (Clinic) 9.7 % (4.0-6.0) H 06/15/23 11:05 Assessment and Plan Assessment & Plan (1) Type 2 diabetes mellitus with hyperglycemia: Comment: Eye and Lasix Code(s): E11.65 - Type 2 diabetes mellitus with hyperglycemia Plan: Decrease the amount of carbohydrate intake, pasta, bread, rice and potatoes are all sugar and that is aside from all the sweet stuff, remember that fruits are good but they are Sweet also. Hemoglobin A1c goal of less than 6.5. Patient is on Jardiance 25 mg once a day glipizide 10 mg once a day.. Will make sure that patient is taking both medications regularly (2) Hypertension: Code(s): I10 - Essential (primary) hypertension Qualifiers: Hypertension type: essential hypertension Qualified Code(s): I10 - Essential (primary) hypertension Plan: Continue with blood pressure medication. Decrease salt intake and exercise patient takes lisinopril 40 mg once a day. Advised to monitor the blood pressure with this blood pressure medication and record. (3) Hypercholesterolemia: Code(s): E78.00 - Pure hypercholesterolemia, unspecified Plan: Avoid fried foods, chicken skin, eggs, butter margarine, pastries and meat. Be it pork or beef they have a lot of cholesterol LDL goal of less than 100 and triglyceride of less than 150 patient's last blood work on diet November 2022 85 (4) Obesity (BMI 30-39.9): Code(s): E66.9 - Obesity, unspecified Plan: Diet and exercise (5) Generalized anxiety disorder: Comment: Patient did talk to the therapist but due to cost has stop(April 2022) Code(s): F41.1 - Generalized anxiety disorder Plan: Continue with present medication as needed Orders: Orders Comprehensive Met. Panel 3 Months E11.65 - Type 2 diabetes mellitus with hyperglycemia Creatinine Urine 3 Months E11.65 - Type 2 diabetes mellitus with hyperglycemia Microalbumin, Random (w Creat) 3 Months E11.65 - Type 2 diabetes mellitus with hyperglycemia Hemoglobin A1c 3 Months E11.65 - Type 2 diabetes mellitus with hyperglycemia AMB Hemoglobin A1c Today Z13.9 - Encounter for screening, unspecified Complete Blood Count Auto Diff 3 Months E11.65 - Type 2 diabetes mellitus with hyperglycemia Free T4 (Free Thyroxine) 3 Months E11.65 - Type 2 diabetes mellitus with hyperglycemia Lipid Panel 3 Months E11.65 - Type 2 diabetes mellitus with hyperglycemia, E78.00 - Pure hypercholesterolemia, unspecified Vitamin B12 and Folate 3 Months E11.65 - Type 2 diabetes mellitus with hyperglycemia Thyroid Stimulating Hormone 3 Months E11.65 - Type 2 diabetes mellitus with hyperglycemia Coding Level of Care Code Est Pt Level 4 (34501) Diagnoses Type 2 diabetes mellitus with hyperglycemia E11.65 Essential hypertension I10 Hypertension type: essential hypertension Hypercholesterolemia E78.00 Obesity (BMI 30-39.9) E66.9 Generalized anxiety disorder F41.1
== END 2023-06-15 11:45 | disposition home or self-care (01) ==
PROVIDERS: PCP Internal Medicine; Visit Provider Internal Medicine
DX: E11.65 Type 2 diabetes mellitus with hyperglycemia (principal); I10 Essential (primary) hypertension; E78.00 Pure hypercholesterolemia, unspecified; F41.1 Generalized anxiety disorder
CPT/HCPCS: 83036; 99214

== ENCOUNTER 2023-10-12 06:28 | Day surgery (SDC) | payer OTHER, SELFPAY ==
--- NOTE | 2023-10-09 13:26 | HO.ANESPROP2 ---
Documented by User: Trina Reese NP 10/09/23 13:27 HPI - Anesthesia Eval Consult details Narrative: 48yo M for Upper Endoscopy and Colonoscopy Anesthesia Pre-Procedure Meds Is the patient on any of the following meds?: SGLT2 Inhib PMFSH Active Problems Active Problems: All Active Problems Chronic constipation (Acute) Constipation (Acute) Renal cyst (Acute) Renal mass of unknown nature (Acute) Knee pain (Acute) Facial skin lesion (Acute) Complex renal cyst (Acute) Fatty liver (Acute) Insomnia (Acute) Generalized anxiety disorder (Acute) RUQ abdominal pain (Acute) Vitamin B12 deficiency (Acute) Left flank pain (Acute) Type 2 diabetes mellitus with hyperglycemia (Acute) Medicare annual wellness visit, initial (Acute) Lumbar degenerative disc disease (Acute) GERD (gastroesophageal reflux disease) (Acute) Hypertension (Acute) Hypercholesterolemia (Acute) Obesity (BMI 30-39.9) (Acute) Past Medical History Medical History (Updated 06/15/23 @ 11:43 by Devan Claros MD) Colon cancer screening Encounter for screening colonoscopy Lumbar degenerative disc disease Vitamin D deficiency Tobacco abuse GERD (gastroesophageal reflux disease) Hypertension Hypercholesterolemia Obesity (BMI 30-39.9) Family History Family History Father Lung cancer Alcohol abuse Surgical History Surgical History History of rectal surgery Social History Social History Housing: House Alcohol intake: never Patient Tobacco Use Status: Former Tobacco user Tobacco use type: Cigarette Cigarette Packs Per Day: 1 e-Cigarette/Vaping Use: Never Used Second Hand Smoke Exposure: Yes Advance Directives: No Advance Directives Information Provided: Yes service: No Current occupational status: employed Cognitive needs: No Hearing needs: No Vision needs: Yes (reading glasses) Meds Allergies Allergy/AdvReac Type Severity Reaction Status Date / Time metformin AdvReac Intermediate Diarrhea Verified 06/15/23 11:02 Assessment and Plan Assessment Anesthesia Assessment: Chart Reviewed Documented by User: Favian Tovar MD 10/12/23 07:05 [facility] Past Medical History Medical History (Updated 06/15/23 @ 11:43 by Devan Claros MD) Colon cancer screening Encounter for screening colonoscopy Lumbar degenerative disc disease Vitamin D deficiency Tobacco abuse GERD (gastroesophageal reflux disease) Hypertension Hypercholesterolemia Obesity (BMI 30-39.9) Family History Family History Father Lung cancer Alcohol abuse Family history of problems with anesthesia: No Surgical History Surgical History History of rectal surgery History of Problems with Anesthesia: No Social History Social History Housing: House Alcohol intake: never Patient Tobacco Use Status: Former Tobacco user Tobacco use type: Cigarette Cigarette Packs Per Day: 1 e-Cigarette/Vaping Use: Never Used Second Hand Smoke Exposure: Yes Advance Directives: No Advance Directives Information Provided: Yes service: No Current occupational status: employed Cognitive needs: No Hearing needs: No Vision needs: Yes (reading glasses) Meds Allergies Allergy/AdvReac Type Severity Reaction Status Date / Time metformin AdvReac Intermediate Diarrhea Verified 06/15/23 11:02 Exam Airway Mallampati Class: II TM Dist: >3cm Neck ROM: Full Assessment and Plan Assessment Anesthesia Assessment: Anesthesia Plan Discussed Final Anesthetic Review Family History of Problems with Anesthesia: No History of Problems with Anesthesia: No NPO: Yes ASA Class: III Final Preanesthetic Review: No Changes in Pt Med Stat, Meds/Allgs Chart Reviewed, Consent Obtained/Reviewed and Anes Risks/Benef Reviewed Patient Risk: Intermediate Procedure Risk: Low Anesthetic Plan Anesthetic Plan: TIVA Disposition: Standard PACU
--- NOTE | 2023-10-12 06:06 | MHC.SHP ---
Pre-Procedural Eval Section A - 24 Hr Update-Section A only Date of Service: 10/12/23 Section B - Complete if H&P > 30 days Chief Complaint: gerd,screening colo Relevant Family History (Specify if Yes): No Relevant Social History: None Present Medications: see Short Stay Collaborative assessment Medical History: Significant History (Lumbar degenerative disc disease Vitamin D deficiency Tobacco abuse GERD (gastroesophageal reflux disease) Hypertension Hypercholesterolemia Obesity (BMI 30-39.9)) History of Previous Operations: Relevant previous surgery/procedure and date(s) ( History of rectal surgery) Allergies: Allergies Allergy/AdvReac Type Severity Reaction Status Date / Time metformin AdvReac Intermediate Diarrhea Verified 06/15/23 11:02 Review of Systems Sugical H&P ROS: Negative: Constitution, Cardiovascular, Respiratory, Neurological, Psychiatric, Hem-Onc, Allergic/Immunologic, Gastrointestinal, Genitourinary, Musculoskeletal, Integumentary, Endocrine and Eyes/Ears/Nose/Throat Exam Surgical H&P Exam: Normal: HEENT, Normal: Heart, Normal: Lungs, Normal: Extremities, Normal: Abdomen, Normal: Skin and Normal: Neurological Plan Diagnosis/Plan: Unchanged I have reviewed the history and physical and performed a pertinent physical examination on my patient. No changes have occurred unless specified. Time Spent With Patient Time: Total time managing care of this patient today ____ minutes.
[2023-10-12 07:08] LABS: Glucose, Whole Blood 186 mg/dL (60-115)
[2023-10-12 07:10] VITALS: BMI 36.5
[2023-10-12] MEDS: Lactated Ringers 1,000 ML 100 ML IVCONT (07:15)
[2023-10-12 07:19] VITALS: BP 150/98; PULSE 71; RESP 18; TEMP 36.3; O2SAT 97
--- NOTE | 2023-10-12 08:00 | HO.OPN-COLON ---
Colonoscopy Operative Note Operative Note Date of Service: 10/12/23 Narrative: Operative Information Procedure Description: EGD, Colonoscopy Indication: screening, GERD Anesthesia: MAC FLEXIBLE TRANSORAL UPPER GASTROINTESTINAL ENDOSCOPY AND COLONOSCOPY PROCEDURE NOTE UPPER ENDOSCOPY Consent: Indications for the procedure and potential complications of bleeding, perforation, reaction to medications and missed diagnosis were discussed with the patient and informed consent was obtained. Instrument: Olympus GIF H 190 J mid size upper endoscope Monitoring: Vital signs and clinical assessment, continuous EKG monitoring, Pulse oximetry, Carbon Dioxide monitoring and blood pressure monitoring were done throughout the procedure. Procedure: The patient was placed in the left lateral decubitis position and pre-procedure medications were administered and a bite block was placed. The endoscope was inserted into the mouth and advanced under direct vision to the third part of duodenum. A careful inspection was made as the upper endoscope was withdrawn including a retroflexed examination of the proximal stomach; Findings and interventions are described below. Findings: Larynx:normal Esophagus: GE junction at 43 cm, diaphragm hiatus at 43 cm, normal mucosa- bx taken from GEJ, distal esophagus Stomach: Mild erythema. Biopsies were obtained. Grade 2 flap valve on retroflexed examination of the cardia. Duodenum: Normal bulb and descending duodenum, Intervention: Biopsies as noted above, COLONOSCOPY Instrument: Olympus variable stiffness pediatric scope 190L Colonoscopy Monitoring: Vital signs and clinical assessment, continuous EKG monitoring, Pulse oximetry, Carbon Dioxide monitoring and blood pressure monitoring were done throughout the procedure. Colon withdrawal time was 7 minutes. Procedure: The patient was placed in the left lateral decubitis position and pre-procedure medications were administered. After a digital rectal examination of the ano-rectum, the video colonoscope was inserted into the rectum and advanced through the colon to the cecum/TI. The colonoscope was slowly withdrawn in a retrograde panoramic fashion and the colon mucosa was carefully examined including a retroflexed view of the rectum. Findings and interventions are described below. Procedure Difficulty:moderate Findings: Terminal Ileum-normal Cecum:normal right sided retroflexion- normal Ascending Colon: normal Transverse Colon -normal Descending Colon:normal Sigmoid Colon: normal Rectum: Retroflexion with small internal hemorrhoids, grade I Anorectum - normal Colon preparation: [place] Bowel Preparation Scale Right colon; 2 Transverse colon: 2 Left colon; 3 (0 = Unprepared colon segment with mucosa not seen due to solid stool that cannot be cleared. 1 = Portion of mucosa of the colon segment seen, but other areas of the colon segment not well seen due to staining, residual stool and/or opaque liquid. 2 = Minor amount of residual staining, small fragments of stool and/or opaque liquid, but mucosa of colon segment seen well. 3 = Entire mucosa of colon segment seen well with no residual staining, small fragments of stool or opaque liquid) Impression and Post Procedure Diagnosis: Endoscopy Findings: mild gastritis Colonoscopy Findings: internal hemorrhoids Plan: Await Pathology results Repeat Colonoscopy in 10 years or earlier if clinically indicated High fiber diet leaflet avoid straining at stool, epsom salts and sitz bath, anusol supps or cream Above findings were reviewed with the patient and relevant handouts were provided if indicated.
[2023-10-12 08:08] VITALS: BP 108/71; PULSE 80; RESP 16; TEMP 36.4; O2SAT 94
[2023-10-12 08:23] VITALS: BP 124/85; PULSE 71; RESP 16; O2SAT 95
[2023-10-12 08:38] VITALS: BP 128/83; PULSE 72; RESP 16; TEMP 36.2; O2SAT 96
== END 2023-10-12 09:44 | disposition home or self-care (01) ==
PROVIDERS: PCP Internal Medicine; Visit Provider Internal Medicine Gastroenterology
PROC: (CPT 43239; principal; 2023-10-12 07:30)
DX: Z12.11 Encounter for screening for malignant neoplasm of colon (principal); K64.0 First degree hemorrhoids; K59.00 Constipation, unspecified; K21.9 Gastro-esophageal reflux disease without esophagitis; K29.60 Other gastritis without bleeding; K44.9 Diaphragmatic hernia without obstruction or gangrene; E55.9 Vitamin D deficiency, unspecified; I10 Essential (primary) hypertension; E78.00 Pure hypercholesterolemia, unspecified; M51.36 Other intervertebral disc degeneration, lumbar region; E66.9 Obesity, unspecified; Z68.38 Body mass index [BMI] 38.0-38.9, adult; Z88.8 Allergy status to other drugs, medicaments and biological substances; Z87.891 Personal history of nicotine dependence; Z98.890 Other specified postprocedural states
CPT/HCPCS: 43239; G0121; 82947; 88305; 88313; 88342; J2704

== ENCOUNTER → 2023-10-12 06:28 | Outpatient (BNV) | payer OTHER, SELFPAY | PROVIDERS: PCP Internal Medicine; Visit Provider Internal Medicine Gastroenterology | DX: Z12.11 Encounter for screening for malignant neoplasm of colon (principal); K64.0 First degree hemorrhoids; K21.9 Gastro-esophageal reflux disease without esophagitis; K29.70 Gastritis, unspecified, without bleeding | CPT/HCPCS: 43239; G0121 ==

== ENCOUNTER 2023-10-26 14:40 | Outpatient (AMB) | payer OTHER, SELFPAY ==
--- NOTE | 2023-10-26 14:50 | A.OFFPC_ITS ---
Vital Signs 10/26/23 14:51 Height 6 ft Weight 269 lb 8 oz BMI 36.5 BP 124/80 Blood Pressure Location Lt brachial Position Sitting Pulse 94 Pulse Source Pulse Oximeter Pulse Oximetry (%) 94 Oxygen Delivery Method Room Air Intake Visit Reasons: DM Clinical Outcomes Manager Required: No Accompanied by: Self / Same As Patient Allergies metformin Adverse Reaction (Intermediate, Verified 10/26/23 14:52) Diarrhea Medication List - Last Reconciled 10/26/23 by Devan Claros, alprazolam 0.5 mg PO DAILY PRN bisacodyl (Dulcolax (bisacodyl)) 20 mg (4 x 5 mg) PO ONCE PRN 1 day blood pressure monitor (Blood Pressure Kit) As directed blood sugar diagnostic (FreeStyle Lite Strips) As directed check the BS QD blood-glucose meter (FreeStyle Lite Meter kit) As directed bupropion HCl XL (Wellbutrin XL) 150 mg PO QAM 30 days citalopram 40 mg PO DAILY 90 days cyanocobalamin (vitamin B-12) 1,000 mcg PO DAILY 90 days diclofenac sodium 1% (Voltaren Arthritis Pain) 4 grams topical QID empagliflozin 25 mg PO DAILY famotidine (Pepcid) 20 mg PO BEDTIME glipizide ER 10 mg PO DAILY lancets (FreeStyle Lancets) As directed check BS QD lisinopril 40 mg PO DAILY meloxicam 15 mg PO DAILY pantoprazole 20 mg PO QAM pantoprazole 20 mg PO DAILY polyethylene glycol 3350 (Miralax) 238 grams PO ONCE PRN 1 day sennosides-docusate sodium 8.6-50 mg (Senna-S) 1 tab-cap PO BEDTIME 90 days simethicone (Gas Relief (simethicone)) 125 mg PO TID-QID PRN trazodone 50 mg PO BEDTIME PRN Tobacco use date assessed: 10/26/23 Dental Screening Dental Screen Date: 10/26/23 Did you have a dental visit in the last 12 months?: Yes Did you have a dental problem in the last 6 months where you did not have access to dental care?: No Was dental information given to patient?: Patient has dentist HPI DM HPI Details 48-year-old obese male with uncontrolled diabetes mellitus hypertension hypercholesterolemia and generalized anxiety disorder last seen in 06/27/2023. Patient had a colonoscopy in October 11 with EGD showing mild gastritis and internal hemorrhoids pathology pending. Advised repeat colonoscopy in 10 years. admits to running out of med and since the colon test [facility] Medical History (Updated 10/26/23 @ 15:27 by Devan Claros MD) Chronic constipation Colon cancer screening Encounter for screening colonoscopy Lumbar degenerative disc disease Vitamin D deficiency Tobacco abuse GERD (gastroesophageal reflux disease) Hypertension Hypercholesterolemia Obesity (BMI 30-39.9) Surgical History History of rectal surgery Family History Father Lung cancer Alcohol abuse Social History Housing: House Alcohol intake: never Patient Tobacco Use Status: Former Tobacco user Tobacco use type: Cigarette Cigarette Packs Per Day: 1 e-Cigarette/Vaping Use: Never Used Second Hand Smoke Exposure: Yes service: No Current occupational status: employed Cognitive needs: No Hearing needs: No Vision needs: Yes (reading glasses) Questionnaire PHQ-9 Over the last 2 weeks, how often have you been bothered by any of the following problems? 1. Little interest or pleasure in doing things: more than half the days 2. Feeling down, depressed, or hopeless: more than half the days 3. Trouble falling or staying asleep, or sleeping too much: nearly every day (trouble sleeping) 4. Feeling tired or having little energy: several days 5. Poor appetite or overeating: several days 6. Feeling bad about yourself - or that you are a failure or have let yourself or your family down: not at all 7. Trouble concentrating on things, such as reading the newspaper or watching television: several days 8. Moving or speaking so slowly that other people could have noticed. Or the opposite - being so fidgety or restless that you have been moving around a lot more than usual: not at all 9. Thoughts that you would be better off or of hurting yourself in some way: not at all Total score: 10 Depression Screening Interpretation: Positive Depression Screening Done: Yes Source: Developed by Drs. Ezequiel LAlejandra Keys Kurt Kroenke and colleagues, with an educational jayme from [employer]. Thrive Questionnaire Date Thrive assessed: 10/26/23 I am a: Patient What is your living situation today?: I have a steady place to live Within the past 12 months, did the food you bought not last and you didn't have the money to get more?: Never true Within the past 12 months, did you worry whether your food would run out before you got money to buy more?: Never true Do you have trouble paying for medicines?: No Do you have trouble getting transportation to medical appointments?: No Do you have trouble paying your heating and electricity bill?: No Do you have trouble taking care of your child, family member or friend?: No Do you have trouble with day-to-day activities such as bathing, preparing meals, shopping, managing finances, etc.?: No Are you currently unemployed and looking for a job?: No Are you interested in more education?: No Please select the resources that you would like help with: None Currently or been in a relationship where the following occur: No concerns reported THRIVE Score: 0 AUDIT C Alcohol Use Questionnaire (AUDIT-C) 1. How often do you have a drink containing alcohol?: Never 3. How often do you have six or more drinks on one occasion?: Never Total Score: 0 STEPH-7 AMB Questionnaire STEPH-7 Date STEPH - 7 assessed: 10/26/23 Feeling nervous, anxious, or on edge: 1 = Several days Not being able to stop or control worryin = Several days Worrying too much about different things: 1 = Several days Trouble relaxin = Several days Being so restless that it is hard to sit still: 1 = Several days Becoming easily annoyed or irritable: 1 = Several days Feeling afraid as if something awful might happen: 1 = Several days Total STEPH-7 score (0-4 normal; 5-9 mild; 10-14 moderate; 15-21 severe): 7 Source: Developed by Alejandra Torres Kurt Kroenke and colleagues, with an educational jayme from [employer]. Physical exam (Primary Care) Vital Signs: Last Vital Signs Pulse 94 10/26/23 14:51 BP 124/80 10/26/23 14:51 Pulse Ox 94 10/26/23 14:51 Oxygen Delivery Method Room Air 10/26/23 14:51 BMI result Body Mass Index 36.5 Tobacco/Smoking Status: Tobacco use Status Tobacco use date assessed 10/26/23 10/26/23 14:54 Patient Tobacco Use Status Former Tobacco user 10/26/23 14:54 Tobacco use type Cigarette 10/26/23 14:54 e-Cigarette/Vaping Use Never Used 10/26/23 14:54 PHQ-9: PHQ-9 Score PHQ-9: Total score 10 10/26/23 14:54 Depression Screening Interpretation: Positive Thrive Assessment: Date of Thrive Assessment Date Thrive assessed 10/26/23 10/26/23 14:54 Currently or been in a relationship where the following occur: No concerns reported Const General: alert; No acute distress Eyes Conjunctivae: conjunctivae normal Resp Auscultation: clear to auscultation bilaterally Cardio Rate: regular rate Rhythm: regular rhythm GI Inspection: Yes normal to inspection Extrem General: Yes normal to inspection and No edema Results AMB Hemoglobin A1c AMB Hemoglobin A1c 8.4 % Last Edit by NAYANA Hernandez on 10/26/23 15 :15 Assessment and Plan Assessment & Plan (1) Type 2 diabetes mellitus with hyperglycemia: Comment: Eye and Lasix Code(s): E11.65 - Type 2 diabetes mellitus with hyperglycemia Plan: Decrease the amount of carbohydrate intake, pasta, bread, rice and potatoes are all sugar and that is aside from all the sweet stuff, remember that fruits are good but they are Sweet also. Hemoglobin A1c goal of less than 6.5. Patient is on Jardiance 25 mg once a day glipizide 10 mg once a day (2) Hypertension: Code(s): I10 - Essential (primary) hypertension Qualifiers: Hypertension type: essential hypertension Qualified Code(s): I10 - Essential (primary) hypertension Plan: Continue with blood pressure medication. Decrease salt intake and exercise on lisinopril 40 mg once a day (3) Hypercholesterolemia: Code(s): E78.00 - Pure hypercholesterolemia, unspecified Plan: Avoid fried foods, chicken skin, eggs, butter margarine, pastries and meat. Be it pork or beef they have a lot of cholesterol LDL goal of less than 100 and triglyceride of less than 150 blood work requested (4) Obesity (BMI 30-39.9): Code(s): E66.9 - Obesity, unspecified Plan: Diet and exercise (5) Generalized anxiety disorder: Comment: Patient did talk to the therapist but due to cost has stop(April 2022) Code(s): F41.1 - Generalized anxiety disorder Plan: Continue with present medication (6) History of nicotine dependence: Comment: stopped 2021 Code(s): Z87.891 - Personal history of nicotine dependence (7) Oral shila: Code(s): B37.0 - Candidal stomatitis Orders: Orders AMB Hemoglobin A1c Today Z13.9 - Encounter for screening, unspecified Medications: New semaglutide (Ozempic) for 4 weeks 0.25 mg (0.368 mL) subcut QWEEK 3 mL 1RF E11.65 - Type 2 diabetes mellitus with hyperglycemia nystatin swish and swallow 5 mL PO TID 7 days 105 mL 0RF B37.0 - Candidal stomatitis semaglutide (Ozempic) for 4 weeks 0.25 mg (0.368 mL) subcut QWEEK 3 mL 1RF E11.65 - Type 2 diabetes mellitus with hyperglycemia Coding Level of Care Code Est Pt Level 4 (51074) Complex EM visit Add On G2211 Diagnoses Type 2 diabetes mellitus with hyperglycemia E11.65 Essential hypertension I10 Hypertension type: essential hypertension Hypercholesterolemia E78.00 Obesity (BMI 30-39.9) E66.9 Generalized anxiety disorder F41.1 History of nicotine dependence Z87.891 Oral shila B37.0
[2023-10-26 14:51] VITALS: BP 124/80; PULSE 94; O2SAT 94; BMI 36.5
== END 2023-10-26 15:34 | disposition home or self-care (01) ==
PROVIDERS: PCP Internal Medicine; Visit Provider Internal Medicine
DX: E11.65 Type 2 diabetes mellitus with hyperglycemia (principal); I10 Essential (primary) hypertension; E66.9 Obesity, unspecified; Z68.36 Body mass index [BMI] 36.0-36.9, adult; E78.00 Pure hypercholesterolemia, unspecified; F41.1 Generalized anxiety disorder; Z87.891 Personal history of nicotine dependence; B37.0 Candidal stomatitis
CPT/HCPCS: 83036; 99214; G2211

== ENCOUNTER 2024-02-12 14:11 | Outpatient (AMB) | payer OTHER, SELFPAY ==
--- NOTE | 2024-02-12 14:19 | A.OFFPC_ITS ---
Vital Signs 02/12/24 14:20 Height 6 ft Weight 270 lb 8 oz BMI 36.7 BP 120/72 Blood Pressure Location Lt brachial Position Sitting Pulse 96 Pulse Source Pulse Oximeter Pulse Oximetry (%) 96 Oxygen Delivery Method Room Air Intake Visit Reasons: DM Intake Note: Patient is here to follow up on DM. Pt decline flu shot today. Well Tender Required: No Supervisor Plastics: Not Required per policy Accompanied by: Self / Same As Patient Allergies metformin Adverse Reaction (Intermediate, Verified 02/12/24 14:20) Diarrhea Tobacco use date assessed: 02/12/24 Dental Screening Dental Screen Date: 10/26/23 HPI DM HPI Details The patient is a 48-year-old male presenting with concerns related to diabetes management. He has been advised to undergo blood work, specifically to monitor liver function and lipid levels. The patient was previously noted to have elevated liver function tests, though specific values were not discussed during this visit. His most recent LDL cholesterol was noted to be 87 mg/dL. The patient reports improvement in his diabetes control; his last A1c was 8.4%, and it has now decreased to 7.0%. Despite these improvements, he continues to consume sugary beverages, which remains a challenge in his lifestyle changes. The patient is under treatment with Ozempic to aid with weight management and blood sugar control; he is currently on a low dose and reports partial satiety effects. Additionally, he mentions familial stressors, including the recent passing of his mother and brother's cancer diagnosis, which may be impacting his weight and lifestyle. He articulates occasional depressive and anxious feelings but relies on daily prayer as a coping mechanism. The patient also reports a sensation of a hernia in the abdominal area, which he describes as a bulge. He denies any significant alleviating strategies but is advised to avoid heavy lif ting. There are no reports of fever or other acute symptoms at this time. - Blood work to assess liver function an d A1c levels discussed - Recommendation to increase physical ac tivity and maintain a healthy diet - Advised to continue weight management efforts and hydration - Encouraged to avoid sugary drinks and increase water intake - Reports familial stressors, including recent bereavements - Engages in prayer daily - No current pets - Recent travel to [place], developed mi ld respiratory symptoms post-travel - Experiences anxiety and depression rel ated to recent family events - Respiratory: Reports mild cough and ru nny nose - Endocrine: Reports difficulty managing blood sugar intake due to soda consumption - Gastrointestinal: Reports sensation of a hernia without current signs of inflammation - Respiratory- Mouth examination shows n o acute abnormalities - Abdominal- Exam reveals noticeable her chaitanya upon palpation [facility] Medical History (Updated 02/12/24 @ 14:55 by Devan Claros MD) Chronic constipation Colon cancer screening Encounter for screening colonoscopy Lumbar degenerative disc disease Vitamin D deficiency Tobacco abuse GERD (gastroesophageal reflux disease) Hypertension Hypercholesterolemia Obesity (BMI 30-39.9) Surgical History History of rectal surgery Family History Father Lung cancer Alcohol abuse Social History Housing: House Alcohol intake: never Patient Tobacco Use Status: Former Tobacco user Tobacco use type: Cigarette Cigarette Packs Per Day: 1 e-Cigarette/Vaping Use: Never Used Second Hand Smoke Exposure: Yes service: No Current occupational status: employed Cognitive needs: No Hearing needs: No Vision needs: Yes (reading glasses) Questionnaire Thrive Questionnaire Date Thrive assessed: 10/26/23 STEPH-7 AMB Questionnaire STEPH-7 Date STEPH - 7 assessed: 10/26/23 Source: Developed by Drs. Ezequiel Esqueda, Alejandra Rodriguez, Neel Yanez and colleagues, with an educational jayme from [employer]. Physical exam (Primary Care) Vital Signs: Last Vital Signs Pulse 96 02/12/24 14:20 BP 120/72 02/12/24 14:20 Pulse Ox 96 02/12/24 14:20 Oxygen Delivery Method Room Air 02/12/24 14:20 BMI result Body Mass Index 36.7 Tobacco/Smoking Status: Tobacco use Status Tobacco use date assessed 02/12/24 02/12/24 14:28 Patient Tobacco Use Status Former Tobacco user 02/12/24 14:28 Tobacco use type Cigarette 02/12/24 14:28 e-Cigarette/Vaping Use Never Used 02/12/24 14:28 Thrive Assessment: Date of Thrive Assessment Date Thrive assessed 10/26/23 02/12/24 14:28 Const General: alert; No acute distress Eyes Conjunctivae: conjunctivae normal Resp Auscultation: clear to auscultation bilaterally Cardio Rate: regular rate Rhythm: regular rhythm GI Inspection: Yes normal to inspection Extrem General: Yes normal to inspection and No edema Results AMB Hemoglobin A1c AMB Hemoglobin A1c 7.0 % Last Edit by NAYANA Ulloa on 02/12/24 14:31 Results Reviewed Results Reviewed: Laboratory Last Values Hgb A1c (Clinic) 7.0 % (4.0-6.0) H 02/12/24 14:19 Coding Level of Care Code Est Pt Level 4 (89671) Complex EM visit Add On G2211 Diagnoses Type 2 diabetes mellitus with hyperglycemia, without long-term current use of insulin E11.65 Diabetes mellitus buttermaker helper insulin use: without buttermaker helper use Essential hypertension I10 Hypertension type: essential hypertension Hypercholesterolemia E78.00 Obesity (BMI 30-39.9) E66.9 Gastroesophageal reflux disease without esophagitis K21.9 Esophagitis presence: without esophagitis Generalized anxiety disorder F41.1 Assessment & Plan Assessment & Plan (1) Type 2 diabetes mellitus with hyperglycemia: Comment: Eye and Lasix Code(s): E11.65 - Type 2 diabetes mellitus with hyperglycemia Category: Medical Qualifiers: Diabetes mellitus skilled nursing insulin use: without buttermaker helper use Qualified Code(s): E11.65 - Type 2 diabetes mellitus with hyperglycemia Plan: advised to increase dose of the ozempic (2) Hypertension: Code(s): I10 - Essential (primary) hypertension Category: Medical Qualifiers: Hypertension type: essential hypertension Qualified Code(s): I10 - Essential (primary) hypertension Plan: BP controlled (3) Hypercholesterolemia: Code(s): E78.00 - Pure hypercholesterolemia, unspecified Category: Medical Plan: advised to get blood work (4) Obesity (BMI 30-39.9): Code(s): E66.9 - Obesity, unspecified Category: Medical Plan: increase dose of ozempic (5) GERD (gastroesophageal reflux disease): Comment: Reflux precautions reviewed EGDr/o PUD, nonulcer dyspepsia, esophagitis other endoscopic findings to account for her symptoms Code(s): K21.9 - Gastro-esophageal reflux disease without esophagitis Category: Medical Qualifiers: Esophagitis presence: without esophagitis Qualified Code(s): K21.9 - Gastro-esophageal reflux disease without esophagitis (6) Generalized anxiety disorder: Comment: Patient did talk to the therapist but due to cost has stop(April 2022) Code(s): F41.1 - Generalized anxiety disorder Category: Medical Plan: decline counselling Plan - Labs: LDL Cholesterol: 87 mg/dL - Previously known Hemoglobin A1c reduced from 8.4% to 7.0% - Elevated Liver Function Tests: Plan for further blood work to monitor liver function. Encourage nutritional changes and set a follow-up for results. - Prediabetes: Increase Ozempic dosage to enhance glycemic control and promote weight loss. Encourage cessation of sugary soda intake and reinforce diet and exercise interventions to further decrease A1c. - Hernia: Advise avoiding heavy lifting. Recommend surgical evaluation only if the condition worsens or symptoms become intolerable. During the visit, we discussed the need to adhere to lifestyle changes, emphasizing the importance of decreased sugar intake and increased physical activity. The patient acknowledged understanding the risks associated with continued soda consumption and agreed to work towards reducing this habit. We discussed the potential benefits of increasing his Ozempic dosage for better glycemic control and satiety. We reviewed the hernia's management, highlighting the importance of avoiding heavy lifting. The patient was advised to perform regular check-ins to assess the treatment's effectiveness, particularly regarding the Ozempic dosage adjustment. The significance of blood work completion for ongoing liver function and lipid level monitoring was iterated, with a strategy for prompt follow-up once results are available. - Complete the recommended blood work this week - Follow up in one month to reassess Ozempic effectiveness - Increase Ozempic dosage as discussed to 0.5 mg - Avoid heavy lifting to manage hernia symptoms - Aim to eliminate sugary sodas from diet - Maintain regular hydration and a balanced diet - Monitor any systemic changes or hernia symptoms and report if they worsen Orders: Orders AMB Hemoglobin A1c Today E11.65 - Type 2 diabetes mellitus with hyperglycemia Medications: Changed From semaglutide (Ozempic) for 4 weeks 0.25 mg (0.368 mL) subcut QWEEK 4 weeks 3 mL 1RF E11.65 - Type 2 diabetes mellitus with hyperglycemia To semaglutide (Ozempic) for 4 weeks 0.5 mg (0.736 mL) subcut QWEEK 4 weeks 2.944 mL 1RF E11.65 - Type 2 diabetes mellitus with hyperglycemia Refilled semaglutide (Ozempic) for 4 weeks 0.5 mg (0.736 mL) subcut QWEEK 2.944 mL 1RF 4 weeks E11.65 - Type 2 diabetes mellitus with hyperglycemia
[2024-02-12 14:20] VITALS: BP 120/72; PULSE 96; O2SAT 96; BMI 36.7
== END 2024-02-12 15:08 | disposition home or self-care (01) ==
PROVIDERS: PCP Internal Medicine; Visit Provider Internal Medicine
DX: E11.65 Type 2 diabetes mellitus with hyperglycemia (principal); I10 Essential (primary) hypertension; E66.9 Obesity, unspecified; Z68.36 Body mass index [BMI] 36.0-36.9, adult; E78.00 Pure hypercholesterolemia, unspecified; K21.9 Gastro-esophageal reflux disease without esophagitis; F41.1 Generalized anxiety disorder

== ENCOUNTER → 2024-02-12 14:11 | Outpatient (BNVA) | payer OTHER, SELFPAY | PROVIDERS: PCP Internal Medicine; Visit Provider Internal Medicine | DX: E11.65 Type 2 diabetes mellitus with hyperglycemia (principal); I10 Essential (primary) hypertension; E78.00 Pure hypercholesterolemia, unspecified; E66.9 Obesity, unspecified; K21.9 Gastro-esophageal reflux disease without esophagitis; F41.1 Generalized anxiety disorder | CPT/HCPCS: 83036; 99212 ==

== ENCOUNTER 2024-05-13 12:58 | Outpatient (REF) | payer OTHER, SELFPAY ==
[2024-05-13 14:12] LABS: Basophils Percent Auto 0.4 % (0-2); Eosinophils Absolute Auto 0.1 X10*3/uL (0.0-0.4); Eosinophils Percent Auto 1.2 % (0-4); Hemoglobin 16.5 g/dl (14.0-18.0); Imm Gran Abs Auto 0.02 X10*3/uL (0.00-0.03); Imm Gran Pct Auto 0.4 % (0.0-0.4); Lymphocytes Percent Auto 34.4 % (20-40); MANUAL DIFF FLAG SCAN; Mean Corpuscular HGB Conc 35.9 g/dl (31.0-36.0); Mean Corpuscular Hemoglobin 31.2 pg (27.0-33.0); Monocytes Absolute Auto 0.5 X10*3/uL (0.1-1.2); Monocytes Percent Auto 7.9 % (2-11); Neutrophils Absolute Auto 3.2 x10*3/uL (2.0-8.3); Neutrophils Percent Auto 55.7 % (45-73); PLT CLUMP 1; Red Blood Count 5.29 X10*6/uL (4.60-5.80); Red Cell Distribution Width 12.3 % (11.0-16.0); SCAN SMEAR FLAG 1
[2024-05-13 14:22] LABS: Estimated Average Glucose 197 mg/dL; Hemoglobin A1c % 8.5 % (<6.0)
[2024-05-13 14:55] LABS: White Blood Count 5.7 X10*3/uL (4.8-10.8)
[2024-05-13 14:56] LABS: Mean Platelet Volume 13.5 fL (9.4-12.4); Platelet Count 115 X10*3/uL (160-400); SLIDE REVIEW VERIFIED
[2024-05-13 15:30] LABS: Creatinine Urine 148.36 mg/dL; Microalbum/Creatinine Ratio Ur 51.2 ug/mg cr (<30)
[2024-05-13 15:40] LABS: Folate 13.5 ng/mL (> or = 4.0); Vitamin B12 366 pg/mL (200-900)
[2024-05-13 16:28] LABS: Alanine Aminotransferase 111 U/L (0-40); Albumin Level 4.4 g/dL (3.5-5.0); Alkaline Phosphatase 80 U/L (39-117); Anion Gap 11 (12-20); Aspartate Amino Transferase 54 U/L (5-37); Bilirubin Total 0.5 mg/dL (0.0-1.0); Blood Urea Nitrogen 10 mg/dL (9-16); Calcium 9.5 mg/dL (8.4-10.2); Carbon Dioxide 27 mmol/L (22-29); Chloride 103 mmol/L (96-108); Cholesterol 171 mg/dL (<200); Estimated Glomerular Filt Rate > 60; Glucose Random 200 mg/dL (60-115); HDL Cholesterol 34 mg/dL (>40); LDL Cholesterol Calculated 92 mg/dL (<100); Potassium 4.3 mmol/L (3.3-5.1); Sodium 137 mmol/L (135-145); Total Protein 8.5 g/dL (6.5-8.0); Triglycerides 225 mg/dL (<150)
[2024-05-13 16:44] LABS: Free T4 (Free Thyroxine) 1.03 ng/dL (0.71-1.85); Thyroid Stimulating Hormone 1.26 uIU/mL (0.32-4.0)
== END 2024-05-13 12:59 | disposition home or self-care (01) ==
LOC: HO.LAB 12:58
PROVIDERS: PCP Internal Medicine; Visit Provider Internal Medicine
DX: E11.65 Type 2 diabetes mellitus with hyperglycemia (principal); E78.00 Pure hypercholesterolemia, unspecified; E66.9 Obesity, unspecified; I10 Essential (primary) hypertension; K21.9 Gastro-esophageal reflux disease without esophagitis; F41.1 Generalized anxiety disorder
CPT/HCPCS: 36415; 80053; 80061; 82043; 82570; 82607; 82746; 83036; 84439; 84443; 85025; 99212

== ENCOUNTER 2024-05-13 13:47 | Outpatient (AMB) | payer OTHER, SELFPAY ==
[2024-05-13 14:18] VITALS: BP 138/78; PULSE 80; RESP 16; TEMP 36.5; O2SAT 97; BMI 36.5
--- NOTE | 2024-05-13 14:18 | A.OFFPC_ITS ---
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: No Accompanied by: Self / Same As Patient Allergies metformin Adverse Reaction (Intermediate, Verified 05/13/24 14:18) Diarrhea Tobacco use date assessed: 05/13/24 Dental Screening Dental Screen Date: 10/26/23 [facility] Medical History Chronic constipation Colon cancer screening Encounter for screening colonoscopy Lumbar degenerative disc disease Vitamin D deficiency Tobacco abuse GERD (gastroesophageal reflux disease) Hypertension Hypercholesterolemia Obesity (BMI 30-39.9) Surgical History History of rectal surgery Family History Father Lung cancer Alcohol abuse Social History Housing: House Alcohol intake: never Patient Tobacco Use Status: Former Tobacco user Tobacco use type: Cigarette Cigarette Packs Per Day: 1 e-Cigarette/Vaping Use: Never Used Second Hand Smoke Exposure: Yes service: No Current occupational status: employed Cognitive needs: No Hearing needs: No Vision needs: Yes (reading glasses) Questionnaire PHQ-9 Over the last 2 weeks, how often have you been bothered by any of the following problems? 1. Little interest or pleasure in doing things: more than half the days 2. Feeling down, depressed, or hopeless: more than half the days 3. Trouble falling or staying asleep, or sleeping too much: more than half the days (trouble sleeping) 4. Feeling tired or having little energy: more than half the days 5. Poor appetite or overeating: more than half the days 6. Feeling bad about yourself - or that you are a failure or have let yourself or your family down: more than half the days 7. Trouble concentrating on things, such as reading the newspaper or watching television: more than half the days 8. Moving or speaking so slowly that other people could have noticed. Or the opposite - being so fidgety or restless that you have been moving around a lot more than usual: not at all 9. Thoughts that you would be better off or of hurting yourself in some way: not at all Total score: 14 Source: Developed by Drs. Ezequiel Esqueda, Neel Marcos and colleagues, with an educational jayme from [employer]. Thrive Questionnaire Date Thrive assessed: 10/26/23 I am a: Patient What is your living situation today?: I have a steady place to live Within the past 12 months, did the food you bought not last and you didn't have the money to get more?: Never true Within the past 12 months, did you worry whether your food would run out before you got money to buy more?: Never true Do you have trouble paying for medicines?: No Do you have trouble getting transportation to medical appointments?: No Do you have trouble paying your heating and electricity bill?: No Do you have trouble taking care of your child, family member or friend?: No Do you have trouble with day-to-day activities such as bathing, preparing meals, shopping, managing finances, etc.?: No Are you currently unemployed and looking for a job?: No Are you interested in more education?: No THRIVE Score: 0 AUDIT C Alcohol Use Questionnaire (AUDIT-C) 1. How often do you have a drink containing alcohol?: Never 3. How often do you have six or more drinks on one occasion?: Never Total Score: 0 STEPH-7 AMB Questionnaire STEPH-7 Date STEPH - 7 assessed: 05/13/24 Feeling nervous, anxious, or on edge: 1 = Several days Not being able to stop or control worryin = Several days Worrying too much about different things: 1 = Several days Trouble relaxin = Several days Being so restless that it is hard to sit still: 1 = Several days Becoming easily annoyed or irritable: 1 = Several days Feeling afraid as if something awful might happen: 1 = Several days Total STEPH-7 score (0-4 normal; 5-9 mild; 10-14 moderate; 15-21 severe): 7 Source: Developed by Drs. Ezequiel Esqueda, Neel Marcos and colleagues, with an educational jayme from [employer]. Physical exam (Primary Care) Vital Signs: Last Vital Signs Temp 97.7 F 05/13/24 14:18 Pulse 80 05/13/24 14:18 Resp 16 05/13/24 14:18 BP 138/78 05/13/24 14:18 Pulse Ox 97 05/13/24 14:18 Oxygen Delivery Method Room Air 05/13/24 14:18 BMI result Body Mass Index 36.5 Tobacco/Smoking Status: Tobacco use Status Tobacco use date assessed 05/13/24 05/13/24 14:19 Patient Tobacco Use Status Former Tobacco user 05/13/24 14:19 Tobacco use type Cigarette 05/13/24 14:19 e-Cigarette/Vaping Use Never Used 05/13/24 14:19 PHQ-9: PHQ-9 Score PHQ-9: Total score 14 05/13/24 15:18 Thrive Assessment: Date of Thrive Assessment Date Thrive assessed 10/26/23 05/13/24 14:19 Const General: alert; No acute distress Eyes Conjunctivae: conjunctivae normal Resp Auscultation: clear to auscultation bilaterally Cardio Rate: regular rate Rhythm: regular rhythm GI Inspection: Yes normal to inspection Extrem General: Yes normal to inspection and No edema Coding Level of Care Code Est Pt Level 4 (33874) Complex EM visit Add On G2211 Diagnoses Type 2 diabetes mellitus with hyperglycemia, without long-term current use of insulin E11.65 Diabetes mellitus long term care administrator insulin use: without long term care administrator use Obesity (BMI 30-39.9) E66.9 Hypercholesterolemia E78.00 Essential hypertension I10 Hypertension type: essential hypertension Gastroesophageal reflux disease without esophagitis K21.9 Esophagitis presence: without esophagitis Generalized anxiety disorder F41.1 Assessment & Plan Assessment & Plan (1) Type 2 diabetes mellitus with hyperglycemia: Comment: Eye and Lasix Code(s): E11.65 - Type 2 diabetes mellitus with hyperglycemia Category: Medical Qualifiers: Diabetes mellitus mcfp insulin use: without long term care administrator use Qual ified Code(s): E11.65 - Type 2 diabetes mellitus with hyperglycemia Plan: Decrease the amount of carbohydrate intake, pasta, bread, rice and potatoes are all sugar and that is aside from all the sweet stuff, remember that fruits are good but they are Sweet also. Hemoglobin A1c goal of less than 6.5. Patient on Jardiance 25 mg once a day glipizide 10 mg once a day placed on Ozempic 0.5 mg once a week. Weight is about the same. Patient is instructed to use the yessica for messages. (2) Obesity (BMI 30-39.9): Code(s): E66.9 - Obesity, unspecified Category: Medical Plan: Diet and exercise (3) Hypercholesterolemia: Code(s): E78.00 - Pure hypercholesterolemia, unspecified Category: Medical Plan: Avoid fried foods, chicken skin, eggs, butter margarine, pastries and meat. Be it pork or beef they have a lot of cholesterol LDL goal of less than 100 and triglyceride of less than 150 patient is not on any cholesterol medication (4) Hypertension: Code(s): I10 - Essential (primary) hypertension Category: Medical Qualifiers: Hypertension type: essential hypertension Qualified Code(s): I10 - Essential (primary) hypertension Plan: Continue with blood pressure medication. Decrease salt intake and exercise on lisinopril 40 mg once a day (5) GERD (gastroesophageal reflux disease): Comment: Reflux precautions reviewed EGDr/o PUD, nonulcer dyspepsia, esophagitis other endoscopic findings to account for her symptoms Code(s): K21.9 - Gastro-esophageal reflux disease without esophagitis Category: Medical Qualifiers: Esophagitis presence: without esophagitis Qualified Code(s): K21.9 - Gastro-esophageal reflux disease without esophagitis Plan: Avoid the foods that causes that usually spicy foods, tomato products, juices, coffee, soda and foods that your sensitive to. After eating do not lie down, allow 3-4 hours before in lie down. And keep the head of bed above 30 degrees to avoid the acid from going up. (6) Generalized anxiety disorder: Comment: Patient did talk to the therapist but due to cost has stop(April 2022) Code(s): F41.1 - Generalized anxiety disorder Category: Medical Plan: On trazodone alprazolam as needed Plan History of Present Illness The patient is a 48-year-old male presenting for follow-up of Type 2 Diabetes Mellitus. The Hemoglobin A1c is currently 8.5%, which is higher than previous levels due to non-compliance with the prescribed treatment regime. The patient halted medication intake because of stress and resulting unhealthy dietary choices. He notices diabetic symptoms such as dry mouth and frequent urination when hyperglycemic. The past compliance showed better glycemic control. Medications include Jardiance, Glipizide, and Ozempic. Hesitation regarding side effects led to non-adherence, yet those fears were not clinically justified nor evidenced by significant adversities. Health Maintenance - Hemoglobin A1c monitoring for diabetes management - Blood Pressure control with Lisinopril 40 mg daily - Dietary management and lifestyle modifications for cholesterol goals without current pharmacologic intervention - Regular monitoring of chronic thrombocytopenia while recognized as stable - Past colonoscopy conducted in October 2023 - Continued assessment of symptoms and side effects of current diabetes medication Social History - Lives alone in his house - Previous history of smoking - Drinks soda and coffee heavily - Cares for younger siblings and communicates with his daughter, while avoiding stressing her - Family stress related to the passing of both parents and a brother's incarceration Review of Systems - General: Reports feeling stressed frequently - Endocrine: Reports increased thirst and urination - Musculoskeletal: Reports persistent back pain Physical Exam Results - Labs: Hemoglobin A1c documented at 8.5%, Chronic thrombocytopenia stable - Tests: Recent colonoscopy done in October 2023 Plan For the management of Type 2 Diabetes Mellitus, emphasizing medication adherence is crucial to improve glycemic control. I will increase the Ozempic dose to 1 mg weekly, and the patient should continue taking Jardiance and Glipizide. We discussed mitigating stress and unhealthy dietary practices that contribute to poor glucose control. I will monitor the patient's blood pressure, cholesterol levels, and chronic thrombocytopenia with current medication plans. Follow-up is required in one month to assess the impact of these changes. Success hinges on the patient's commitment to medication adherence and dietary modifications. Patient was informed and verbally consented to the use of an ambient scribe for clinic note documentation during this visit. Discussion Notes We discussed the need for tight glycemic control given the elevated Hemoglobin A1c of 8.5%, with a targeted goal of under 6.5%. I explained the importance of continuing the current medication regime, emphasising Ozempic's mechanism, and addressing the patient's apprehensions about potential side effects. The patient?s concerns about weight gain and hunger were acknowledged, which informed the decision to increase the dosage of Ozempic. We addressed the lifestyle and dietary changes necessary to improve outcomes. Patient Instructions - Resume all diabetes medications as prescribed, including the new Ozempic dose - Avoid high-sugar foods and drinks such as soda - Monitor blood sugars and report any unusual symptoms - Seek help for stress management and consider family support options - Follow up in one month to evaluate medication efficacy and glucose control - Contact office with any concerns about side effects or medication issues Medications: Changed From semaglutide (Ozempic) for 4 weeks 0.5 mg (0.736 mL) subcut QWEEK 4 weeks 2.944 mL 1RF E11.65 - Type 2 diabetes mellitus with hyperglycemia To semaglutide for 4 weeks 1 mg (0.75 mL) subcut QWEEK 3 mL 1RF 4 weeks E11.65 - Type 2 diabetes mellitus with hyperglycemia
== END 2024-05-13 15:33 | disposition home or self-care (01) ==
PROVIDERS: PCP Internal Medicine; Visit Provider Internal Medicine
DX: E11.65 Type 2 diabetes mellitus with hyperglycemia (principal); E66.9 Obesity, unspecified; Z68.36 Body mass index [BMI] 36.0-36.9, adult; E78.00 Pure hypercholesterolemia, unspecified; I10 Essential (primary) hypertension; K21.9 Gastro-esophageal reflux disease without esophagitis; F41.1 Generalized anxiety disorder

== ENCOUNTER 2024-06-14 08:38 | Outpatient (AMB) | payer OTHER, SELFPAY ==
[2024-06-14 08:42] VITALS: BP 126/84; PULSE 84; O2SAT 98; BMI 35.6
--- NOTE | 2024-06-14 08:42 | MHC.PC.OV ---
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 Tester Required: No Accompanied by: Self / Same As Patient Allergies metformin Adverse Reaction (Intermediate, Verified 06/14/24 08:42) Diarrhea Medication List - Last Reconciled 06/14/24 by Devan Claros MD alprazolam 0.5 mg PO DAILY PRN blood pressure monitor (Blood Pressure Kit) As directed blood sugar diagnostic (FreeStyle Lite Strips) As directed check the BS QD blood-glucose meter (FreeStyle Lite Meter kit) As directed citalopram 40 mg PO DAILY 90 days clotrimazole 10 mg mucous membrane .5x a day 7 days cyanocobalamin (vitamin B-12) 1,000 mcg PO DAILY 90 days empagliflozin 25 mg PO DAILY famotidine (Pepcid) 20 mg PO BEDTIME glipizide ER 10 mg PO DAILY lancets (FreeStyle Lancets) As directed check BS QD lisinopril 40 mg PO DAILY meloxicam 15 mg PO DAILY semaglutide 2 mg (0.75 mL) subcut QWEEK 4 weeks trazodone 50 mg PO BEDTIME PRN Tobacco use date assessed: 06/14/24 Dental Screening Dental Screen Date: 06/14/24 Did you have a dental visit in the last 12 months?: Yes Did you have a dental problem in the last 6 months where you did not have access to dental care?: No Was dental information given to patient?: Patient has dentist [facility] Medical History Chronic constipation Colon cancer screening Encounter for screening colonoscopy Lumbar degenerative disc disease Vitamin D deficiency Tobacco abuse GERD (gastroesophageal reflux disease) Hypertension Hypercholesterolemia Obesity (BMI 30-39.9) Surgical History History of rectal surgery Family History Father Lung cancer Alcohol abuse Social History Housing: House Alcohol intake: never Patient Tobacco Use Status: Former Tobacco user Tobacco use type: Cigarette Cigarette Packs Per Day: 1 e-Cigarette/Vaping Use: Never Used Second Hand Smoke Exposure: Yes service: No Current occupational status: employed Cognitive needs: No Hearing needs: No Vision needs: Yes (reading glasses) Questionnaire PHQ-9 Over the last 2 weeks, how often have you been bothered by any of the following problems? 1. Little interest or pleasure in doing things: more than half the days 2. Feeling down, depressed, or hopeless: more than half the days 3. Trouble falling or staying asleep, or sleeping too much: more than half the days (trouble sleeping) 4. Feeling tired or having little energy: more than half the days 5. Poor appetite or overeating: more than half the days 6. Feeling bad about yourself - or that you are a failure or have let yourself or your family down: more than half the days 7. Trouble concentrating on things, such as reading the newspaper or watching television: more than half the days 8. Moving or speaking so slowly that other people could have noticed. Or the opposite - being so fidgety or restless that you have been moving around a lot more than usual: not at all 9. Thoughts that you would be better off or of hurting yourself in some way: not at all Total score: 14 Source: Developed by Drs. Ezequiel Esqueda, Alejandra Rodriguez, Neel Yanez and colleagues, with an educational jayme from [employer]. Thrive Questionnaire Date Thrive assessed: 06/14/24 I am a: Patient What is your living situation today?: I have a steady place to live Within the past 12 months, did the food you bought not last and you didn't have the money to get more?: Never true Within the past 12 months, did you worry whether your food would run out before you got money to buy more?: Never true Do you have trouble paying for medicines?: No Do you have trouble getting transportation to medical appointments?: No Do you have trouble paying your heating and electricity bill?: No Do you have trouble taking care of your child, family member or friend?: No Do you have trouble with day-to-day activities such as bathing, preparing meals, shopping, managing finances, etc.?: No Are you currently unemployed and looking for a job?: No Are you interested in more education?: No Please select the resources that you would like help with: None Currently or been in a relationship where the following occur: No concerns reported THRIVE Score: 0 AUDIT C Alcohol Use Questionnaire (AUDIT-C) 1. How often do you have a drink containing alcohol?: Never 3. How often do you have six or more drinks on one occasion?: Never Total Score: 0 STEPH-7 AMB Questionnaire STEPH-7 Date STEPH - 7 assessed: 06/14/24 Feeling nervous, anxious, or on edge: 1 = Several days Not being able to stop or control worryin = Several days Worrying too much about different things: 1 = Several days Trouble relaxin = Several days Being so restless that it is hard to sit still: 1 = Several days Becoming easily annoyed or irritable: 1 = Several days Feeling afraid as if something awful might happen: 1 = Several days Total STEPH-7 score (0-4 normal; 5-9 mild; 10-14 moderate; 15-21 severe): 7 Source: Developed by Drs. Ezequiel Esqueda, Alejandra Rodriguez, Neel Yanez and colleagues, with an educational jayme from [employer]. Physical exam (Primary Care) Vital Signs: Last Vital Signs Pulse 84 06/14/24 08:42 BP 126/84 06/14/24 08:42 Pulse Ox 98 06/14/24 08:42 Oxygen Delivery Method Room Air 06/14/24 08:42 BMI result Body Mass Index 35.6 Tobacco/Smoking Status: Tobacco use Status Tobacco use date assessed 06/14/24 06/14/24 08:43 Patient Tobacco Use Status Former Tobacco user 06/14/24 08:43 Tobacco use type Cigarette 06/14/24 08:43 e-Cigarette/Vaping Use Never Used 06/14/24 08:43 PHQ-9: PHQ-9 Score PHQ-9: Total score 14 06/14/24 08:47 Thrive Assessment: Date of Thrive Assessment Date Thrive assessed 06/14/24 06/14/24 08:43 Currently or been in a relationship where the following occur: No concerns reported Const General: alert; No acute distress Eyes Conjunctivae: conjunctivae normal Resp Auscultation: clear to auscultation bilaterally Cardio Rate: regular rate Rhythm: regular rhythm GI Inspection: Yes normal to inspection Extrem General: Yes normal to inspection and No edema Coding Level of Care Code Est Pt Level 4 (61290) Complex EM visit Add On G2211 Diagnoses Type 2 diabetes mellitus with hyperglycemia, without long-term current use of insulin E11.65 Diabetes mellitus senior living insulin use: without senior living use Obesity (BMI 30-39.9) E66.9 Hypercholesterolemia E78.00 Essential hypertension I10 Hypertension type: essential hypertension Gastroesophageal reflux disease without esophagitis K21.9 Esophagitis presence: without esophagitis Complex renal cyst N28.1 Assessment & Plan Assessment & Plan (1) Type 2 diabetes mellitus with hyperglycemia: Comment: Eye and Lasix Code(s): E11.65 - Type 2 diabetes mellitus with hyperglycemia Category: Medical Qualifiers: Diabetes mellitus senior living insulin use: without senior living use Qualified Code(s): E11.65 - Type 2 diabetes mellitus with hyperglycemia Plan: Decrease the amount of carbohydrate intake, pasta, bread, rice and potatoes are all sugar and that is aside from all the sweet stuff, remember that fruits are good but they are Sweet also. Hemoglobin A1c goal of less than 6.5 patient is on Jardiance 25 mg once a day glipizide 10 mg once a day semaglutide 1 mg once a week noted 7 for weight loss (2) Obesity (BMI 30-39.9): Code(s): E66.9 - Obesity, unspecified Category: Medical Plan: Continue with diet and exercise (3) Hypercholesterolemia: Code(s): E78.00 - Pure hypercholesterolemia, unspecified Category: Medical Plan: Avoid fried foods, chicken skin, eggs, butter margarine, pastries and meat. Be it pork or beef they have a lot of cholesterol May 2024 last blood work LDL dropped down below 100. Triglyceride dose still high (4) Hypertension: Code(s): I10 - Essential (primary) hypertension Category: Medical Qualifiers: Hypertension type: essential hypertension Qualified Code(s): I10 - Essential (primary) hypertension Plan: Continue with blood pressure medication. Decrease salt intake and exercise takes lisinopril 40 mg once a day (5) GERD (gastroesophageal reflux disease): Comment: Reflux precautions reviewed EGDr/o PUD, nonulcer dyspepsia, esophagitis other endoscopic findings to account for her symptoms Code(s): K21.9 - Gastro-esophageal reflux disease without esophagitis Category: Medical Qualifiers: Esophagitis presence: without esophagitis Qualified Code(s): K21.9 - Gastro-esophageal reflux disease without esophagitis Plan: Avoid the foods that causes that usually spicy foods, tomato products, juices, coffee, soda and foods that your sensitive to. After eating do not lie down, allow 3-4 hours before in lie down. And keep the head of bed above 30 degrees to avoid the acid from going up. (6) Complex renal cyst: Comment: 2021 patient did see Urology no worrisome features. Code(s): N28.1 - Cyst of kidney, acquired Category: Medical Plan History of Present Illness The patient is a 48-year-old male presenting with a follow-up appointment regarding the management of several chronic conditions, including Type 2 Diabetes Mellitus and Essential Hypertension, amongst others. Notable weight reduction of 7 pounds has been achieved amidst treatment plans involving medications like Jardiance and glipizide, as well as a planned increase in semaglutide dosage from 1 mg to 2 mg. Historical lab work from May indicates poorly controlled diabetes with a hemoglobin A1c level of 8.5 and a chronic thrombocytopenia with normal renal function. Elevated liver function tests correspond with a nonalcoholic fatty liver disease diagnosis from corresponding ultrasounds, further complicated by elevated triglycerides measured at 225 mg/dL, although LDL levels have fallen below 100. Proteinuria has been identified as an ongoing concern. The patient refuses alcohol consumption and reports occasional symptoms of hunger leading to jitteriness, which does not typically result in hypoglycemic episodes according to his response to medications. The patient has only recently achieved weight loss through changes in medication and lifestyle adaptations. However, exercises are not part of daily practice. There is clinically recognized anxiety exacerbated by potential diagnostic imaging procedures, necessitated by existing kidney cysts requiring follow-up evaluation. Health Maintenance - Colonoscopy is up to date as of October 2023. - Hemoglobin A1c goal set at less than 6.5. - Cholesterol management with recent LDL drop below 100. - Encouragement of diet and exercise improvements for weight reduction and management of fatty liver disease. - Regular monitoring for proteinuria and hypertension control. Social History - Reports having a daughter. - Weight management through medication adjustments noted but lacks routine exercise. - Anxiety acknowledged, particularly related to medical procedures. - Declines alcohol consumption. - Currently manages a diet to assist in weight loss, with ongoing efforts to improve this further. Review of Systems - General: Denies symptoms of hypoglycemia. - Gastrointestinal: Reports GERD and liver issues, confirmed fatty liver disease. - Urinary: Mild symptoms concerning kidney cysts. - Psychiatric: Reports generalized anxiety disorder, exacerbated by health procedure discussions. Physical Exam Results - Labs: Elevated Liver Function Test; Elevated Triglycerides at 225 mg/dL. - Tests: Hemoglobin A1c at 8.5 as of May. Plan In managing the patient's multiple chronic conditions, adjustments have been made to the diabetes management plan by increasing the semaglutide dose, with close monitoring for hypoglycemia symptoms. Hypertension is controlled with lisinopril, while improvements in cholesterol levels will continue to be pursued. Ongoing management of fatty liver disease through weight loss, dietary changes, and exercise is crucial. The proteinuria future imaging, with attention to the patient's anxiety around procedures. Continuous communication will be engaged to support the patient through these necessary health maintenance actions and disease prevention strategies. Patient was informed and verbally consented to the use of an ambient scribe for clinic note documentation during this visit. Discussion Notes During the consultation, I discussed the ongoing management of the patient?s Type 2 Diabetes Mellitus, including the rationale for increasing semaglutide to 2 mg weekly. We reviewed the importance of maintaining target A1c levels below 6.5, alongside ongoing antihypertensive therapy with lisinopril. Managing hypercholesterolemia, particularly elevated triglycerides, continues to be addressed through lifestyle and medication. I emphasized weight loss as a critical component in resolving nonalcoholic fatty liver disease and reducing cardiovascular risks. We talked about potential tests, emphasizing the significance of evaluating proteinuria and a pre-existing kidney cyst through imaging, review of the chart showed patient has followed up with Urology and no worrisome features of the kidney cyst., thus encouraging dialogue on alternative diagnostics. Follow-up strategies and anticipatory advice were extensively covered, ensuring comprehensive patient understanding and participation. Patient Instructions - Continue with Jardiance, glipizide, and semaglutide as directed, with an increased dose of semaglutide to 2 mg following completion of current supply. - Monitor blood sugar levels regularly, especially given adjustments in diabetes medications. - Maintain current blood pressure medication, lisinopril. - Engage in a healthier diet and regular physical exercise to continue weight loss and manage fatty liver disease. - - Adhere to scheduled appointments and contact healthcare services if adverse symptoms develop. - Schedule follow-up visit in two months for ongoing management of the chronic conditions. Orders: Orders Creatinine Today N28.1 - Cyst of kidney, acquired Blood Urea Nitrogen Today N28.1 - Cyst of kidney, acquired Medications: Changed From semaglutide for 4 weeks 1 mg (0.75 mL) subcut QWEEK 4 weeks 3 mL 1RF E11.65 - Type 2 diabetes mellitus with hyperglycemia To semaglutide for 4 weeks 2 mg (0.75 mL) subcut QWEEK 4 weeks 3 mL 1RF E11.65 - Type 2 diabetes mellitus with hyperglycemia
== END 2024-06-14 09:16 | disposition home or self-care (01) ==
LOC: HO.HMCH 08:38
PROVIDERS: PCP Internal Medicine; Visit Provider Internal Medicine
DX: E11.65 Type 2 diabetes mellitus with hyperglycemia (principal); E66.9 Obesity, unspecified; Z68.35 Body mass index [BMI] 35.0-35.9, adult; E78.00 Pure hypercholesterolemia, unspecified; I10 Essential (primary) hypertension; K21.9 Gastro-esophageal reflux disease without esophagitis; N28.1 Cyst of kidney, acquired

== ENCOUNTER → 2024-06-14 08:38 | Outpatient (BNVA) | payer OTHER, SELFPAY | PROVIDERS: PCP Internal Medicine; Visit Provider Internal Medicine | DX: E11.65 Type 2 diabetes mellitus with hyperglycemia (principal); E66.9 Obesity, unspecified; E78.00 Pure hypercholesterolemia, unspecified; I10 Essential (primary) hypertension; K21.9 Gastro-esophageal reflux disease without esophagitis; N28.1 Cyst of kidney, acquired; Z87.891 Personal history of nicotine dependence; Z68.35 Body mass index [BMI] 35.0-35.9, adult | CPT/HCPCS: 96127; 99212 ==

== ENCOUNTER 2024-08-04 07:37 | Outpatient (REF) | payer OTHER, SELFPAY ==
--- NOTE | ~2024-08-04 | CT_ITS ---
EXAMINATION: CT ABDOMEN WITHOUT THEN WITH IV CONTRAST HISTORY: COMPLEX RENAL CYST COMPARISON: Comparison is made with the prior examination dated 09/01/2018. Correlation is also made with a renal ultrasound dated 12/27/2021. TECHNIQUE: CT scan of the abdomen was performed before and after the intravenous administration of 85 mL Omnipaque 350. Coronal and sagittal reformatted images were generated and reviewed. Oral contrast material was not administered per department protocol. This CT exam was performed with one or more of the following dose reduction techniques: automated exposure control, adjustment of the mA and/or kV according to patient size, use of iterative reconstruction technique. DLP: 844 mGy-cm ABDOMEN: LOWER CHEST: The visualized lung bases are clear. There is no pleural effusion. CARDIOVASCULATURE: The heart is normal in size. There is no pericardial effusion. LIVER: The liver is normal in size and contour, but demonstrates diffusely decreased attenuation, consistent with steatosis. No liver mass is identified. The hepatic and portal veins are patent. GALLBLADDER / BILE DUCTS: The gallbladder is unremarkable. There is no intra or extrahepatic biliary ductal dilatation. SPLEEN: The spleen is enlarged. No focal splenic lesion is identified. PANCREAS: The pancreas is unremarkable in appearance. ADRENAL GLANDS: Within normal limits. KIDNEYS/RETROPERITONEUM: No renal calculi are identified. There is no hydronephrosis. There is poor enhancement of the kidneys on postcontrast imaging. There is an ill-defined hypoechoic focus at the lower pole of the right kidney measuring approximately 1.4 cm in size. This appears smaller than on the prior study (previously 1.9 cm). The density of the lesion is approximately 11.6 HU on the unenhanced examination and 27.7 HU on the postcontrast study. This is not clearly a simple cyst. LYMPH NODES: No abdominal or pelvic lymphadenopathy. VASCULATURE: The abdominal aorta is normal in caliber. MESENTERY/PERITONEUM: No free fluid. No masses. There is no free intraperitoneal gas. STOMACH: The stomach is unremarkable. SMALL BOWEL: The visualized small bowel is normal in caliber. COLON: The visualized portion of the colon is unremarkable. APPENDIX: Normal. BONES / SOFT TISSUES: No suspicious bony or soft tissue abnormalities. CT/CT abdomen wo/w IV con IMPRESSION: 1. Poor enhancement of the kidneys on postcontrast images, limiting evaluation. Ill-defined possibly enhancing 1.4 cm lesion at the lower pole of the right kidney. This does not have the characteristics of a simple cyst, but is smaller than on the prior study. A previous ultrasound dated 02/08/2013 demonstrated a 3.0 cm simple cyst in this region, and findings may represent a partially collapsed cyst. Continued follow-up is recommended. 2. Hepatic steatosis. 3. Splenomegaly. Electronically signed by: Ezequiel Weber MD 08/04/2024 09:24 AM EDT
[2024-08-04] MEDS: iohexoL 350 MG/ML 100 ML INFUS..BTL IV (09:01)
== END 2024-08-04 07:38 | disposition home or self-care (01) ==
LOC: HO.CT 07:37
PROVIDERS: PCP Internal Medicine; Visit Provider Internal Medicine
DX: N28.1 Cyst of kidney, acquired (principal)
CPT/HCPCS: 74170; Q9967

== ENCOUNTER → 2024-08-04 07:39 | Outpatient (BNV) | payer OTHER, SELFPAY | PROVIDERS: PCP Internal Medicine; Visit Provider Radiology Diagnostic Radiology | DX: R93.421 Abnormal radiologic findings on diagnostic imaging of right kidney (principal) | CPT/HCPCS: 74170 ==

== ENCOUNTER 2024-08-18 12:52 | Outpatient (AMB) | payer OTHER, SELFPAY ==
[2024-08-18 12:59] VITALS: BP 131/69; PULSE 71; RESP 18; O2SAT 99; BMI 34.5
--- NOTE | 2024-08-18 12:59 | A.OFFPC_ITS ---
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 [employer]: Present Accompanied by: self Allergies metformin Adverse Reaction (Intermediate, Verified 08/18/24 13:03) Diarrhea Medication List - Last Reconciled 08/18/24 by Devan Claros MD alprazolam 0.5 mg PO DAILY PRN blood pressure monitor (Blood Pressure Kit) As directed blood sugar diagnostic (FreeStyle Lite Strips) As directed check the BS QD blood-glucose meter (FreeStyle Lite Meter kit) As directed citalopram 40 mg PO DAILY 90 days clotrimazole 10 mg mucous membrane .5x a day 7 days cyanocobalamin (vitamin B-12) 1,000 mcg PO DAILY 90 days empagliflozin 25 mg PO DAILY famotidine (Pepcid) 20 mg PO BEDTIME glipizide ER 10 mg PO DAILY lancets (FreeStyle Lancets) As directed check BS QD lisinopril 40 mg PO DAILY meloxicam 15 mg PO DAILY semaglutide 2 mg (0.75 mL) subcut QWEEK 4 weeks trazodone 50 mg PO BEDTIME PRN Tobacco use date assessed: 08/18/24 Dental Screening Dental Screen Date: 06/14/24 [facility] Medical History (Updated 08/18/24 @ 13:42 by Devan Claros MD) Renal mass of unknown nature Renal cyst Chronic constipation Colon cancer screening Encounter for screening colonoscopy Lumbar degenerative disc disease Vitamin D deficiency Tobacco abuse GERD (gastroesophageal reflux disease) Hypertension Hypercholesterolemia Obesity (BMI 30-39.9) Surgical History History of rectal surgery Family History Father Lung cancer Alcohol abuse Social History Housing: House Alcohol intake: never Patient Tobacco Use Status: Former Tobacco user Tobacco use type: Cigarette Cigarette Packs Per Day: 1 e-Cigarette/Vaping Use: Never Used Second Hand Smoke Exposure: Yes service: No Current occupational status: employed Cognitive needs: No Hearing needs: No Vision needs: Yes (reading glasses) Questionnaire PHQ-9 Over the last 2 weeks, how often have you been bothered by any of the following problems? 1. Little interest or pleasure in doing things: not at all 2. Feeling down, depressed, or hopeless: several days 3. Trouble falling or staying asleep, or sleeping too much: more than half the days 4. Feeling tired or having little energy: more than half the days 5. Poor appetite or overeating: several days 6. Feeling bad about yourself - or that you are a failure or have let yourself or your family down: not at all 7. Trouble concentrating on things, such as reading the newspaper or watching television: more than half the days 8. Moving or speaking so slowly that other people could have noticed. Or the opposite - being so fidgety or restless that you have been moving around a lot more than usual: not at all 9. Thoughts that you would be better off or of hurting yourself in some way: not at all Total score: 8 Depression Screening Interpretation: Positive Depression Screening Done: Yes Source: Developed by Drs. Ezequiel Esqueda, Alejandra Rodriguez, Neel Yanez and colleagues, with an educational jayme from [employer]. Thrive Questionnaire Date Thrive assessed: 06/14/24 AUDIT C Alcohol Use Questionnaire (AUDIT-C) 1. How often do you have a drink containing alcohol?: Never 3. How often do you have six or more drinks on one occasion?: Never Total Score: 0 STEPH-7 AMB Questionnaire STEPH-7 Date STEPH - 7 assessed: 06/14/24 Feeling nervous, anxious, or on edge: 3 = Nearly every day Not being able to stop or control worryin = Nearly every day Worrying too much about different things: 3 = Nearly every day Trouble relaxin = Nearly every day Being so restless that it is hard to sit still: 3 = Nearly every day Becoming easily annoyed or irritable: 1 = Several days Feeling afraid as if something awful might happen: 3 = Nearly every day Total STEPH-7 score (0-4 normal; 5-9 mild; 10-14 moderate; 15-21 severe): 19 Source: Developed by Drs. Ezequiel Esqueda, Alejandra Rodriguez, Neel Yanez and colleagues, with an educational jayme from [employer]. Physical exam (Primary Care) Vital Signs: Last Vital Signs Pulse 71 08/18/24 12:59 Resp 18 08/18/24 12:59 BP 131/69 08/18/24 12:59 Pulse Ox 99 08/18/24 12:59 Oxygen Delivery Method Room Air 08/18/24 12:59 BMI result Body Mass Index 34.5 Tobacco/Smoking Status: Tobacco use Status Tobacco use date assessed 08/18/24 08/18/24 13:03 Patient Tobacco Use Status Former Tobacco user 08/18/24 13:03 Tobacco use type Cigarette 08/18/24 13:03 e-Cigarette/Vaping Use Never Used 08/18/24 13:03 PHQ-9: PHQ-9 Score PHQ-9: Total score 8 08/18/24 13:55 Depression Screening Interpretation: Positive Thrive Assessment: Date of Thrive Assessment Date Thrive assessed 06/14/24 08/18/24 13:03 Const General: alert; No acute distress Eyes Conjunctivae: conjunctivae normal Resp Auscultation: clear to auscultation bilaterally Cardio Rate: regular rate Rhythm: regular rhythm GI Inspection: Yes normal to inspection Extrem General: Yes normal to inspection and No edema Results AMB Hemoglobin A1c AMB Hemoglobin A1c 6.1 % Last Edit by MADDIE Melendrez on 08/18/24 13:55 Results Reviewed Results Reviewed: Laboratory Last Values Hgb A1c (Clinic) 6.1 % (4.0-6.0) H 08/18/24 13:54 Coding Level of Care Code Est Pt Level 4 (70245) Complex EM visit Add On G2211 Diagnoses History of nicotine dependence Z87.891 Complex renal cyst N28.1 Generalized anxiety disorder F41.1 Type 2 diabetes mellitus with hyperglycemia, without long-term current use of insulin E11.65 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 July 2024Poor enhancement of the kidneys on postcontrast images, limiting evaluation. Ill-defined possibly enhancing 1.4 cm lesion at the lower pole of the right kidney. This does not have the characteristics of a simple cyst, but is smaller than on the prior study. A previous ultrasound dated 02/08/2013 demonstrated a 3.0 cm simple cyst in this region, and findings may represent a partially collapsed cyst. Continued follow-up is recommended. 2. Hepatic steatosis. 3. Splenomegaly. Code(s): N28.1 - Cyst of kidney, acquired Category: Medical Plan: 08/04/2024 last CAT scan (3) Generalized anxiety disorder: Comment: Patient did talk to the therapist but due to cost has stop(April 2022) Code(s): F41.1 - Generalized anxiety disorder Category: Medical Plan: Continuing with citalopram (4) Type 2 diabetes mellitus with hyperglycemia: Comment: Eye and Lasix Code(s): E11.65 - Type 2 diabetes mellitus with hyperglycemia Category: Medical Qualifiers: Diabetes mellitus intermediate insulin use: without intermediate use Qualified Code(s): E11.65 - Type 2 diabetes mellitus with hyperglycemia Plan: Decrease the amount of carbohydrate intake, pasta, bread, rice and potatoes are all sugar and that is aside from all the sweet stuff, remember that fruits are good but they are Sweet also. Hemoglobin A1c goal of less than 6.5. Patient on semaglutide glipizide Jardiance (5) GERD (gastroesophageal reflux disease): Comment: Reflux precautions reviewed EGDr/o PUD, nonulcer dyspepsia, esophagitis other endoscopic findings to account for her symptoms Code(s): K21.9 - Gastro-esophageal reflux disease without esophagitis Category: Medical Qualifiers: Esophagitis presence: without esophagitis Qualified Code(s): K21.9 - Gastro-esophageal reflux disease without esophagitis Plan: Avoid the foods that causes that usually spicy foods, tomato products, juices, coffee, soda and foods that your sensitive to. After eating do not lie down, allow 3-4 hours before in lie down. And keep the head of bed above 30 degrees to avoid the acid from going up. (6) Hypertension: Code(s): I10 - Essential (primary) hypertension Category: Medical Qualifiers: Hypertension type: essential hypertension Qualified Code(s): I10 - Essential (primary) hypertension Plan: Continue with blood pressure medication. Decrease salt intake and exercise patient is taking lisinopril 40 mg once a day (7) Hypercholesterolemia: Code(s): E78.00 - Pure hypercholesterolemia, unspecified Category: Medical Plan: Avoid fried foods, chicken skin, eggs, butter margarine, pastries and meat. Be it pork or beef they have a lot of cholesterol LDL goal of less than 100 and triglyceride of less than 150 May 2024 is LDL 92 (8) Obesity (BMI 30-39.9): Code(s): E66.9 - Obesity, unspecified Category: Medical Plan: Diet and exercise Plan History of Present Illness The patient is a 49-year-old male presenting for a follow-up visit. The patient has a history of obesity and has recently achieved an 8-pound weight loss. He has been diagnosed with hypertension, hypercholesterolemia, and gastroesophageal reflux disease (GERD). The patient also has lumbar degenerative disc disease and diabetes mellitus, with a hemoglobin A1c of 8.5% as of May. He has generalized anxiety disorder and is currently on citalopram. The patient has hepatic steatosis and splenomegaly, which were noted during a recent imaging study. A renal lesion measuring 1.4 cm was identified on a CT scan of the kidney, which is smaller than previous measurements. The patient has a history of smoking and was last seen in June 2024. His colonoscopy is up to date as of October 2023. The patient?s last blood work in May showed normal blood counts with mild thrombocytopenia. Electrolytes and renal function were normal, but lipid numbers remain elevated with hypertriglyceridemia. Health Maintenance - Colonoscopy up to date as of October 2023 - Encouraged weight loss and exercise to improve hepatic steatosis Social History - History of smoking - Reports anxiety related to eating habits - Recent weight loss of 8 pounds Review of Systems - General: Reports weight loss of 8 pounds - Psychiatric: Reports anxiety related to eating habits Physical Exam Results - Labs: Normal blood count, mild thrombocytopenia, hemoglobin A1c of 8.5% - Imaging: CT scan showing a 1.4 cm lesion on the right kidney, hepatic steatosis, and splenomegaly Plan The patient will continue with current medications, including semaglutide, glipizide, and Jardiance for diabetes management, with a goal to reduce hemoglobin A1c to less than 6.5%. The patient is advised to increase the dose of semaglutide for weight loss, pending insurance approval. For hypertension, the patient will continue lisinopril 40 mg daily. The patient is encouraged to maintain a healthy diet and exercise regimen to manage hypercholesterolemia and hepatic steatosis. A referral to a urologist is recommended for further evaluation of the renal lesion. The patient is advised to follow up on the renal lesion with imaging as recommended. The patient is advised to continue citalopram for anxiety management. The patient is encouraged to reduce sugar intake and consider alternatives to manage cravings. Patient was informed and verbally consented to the use of an ambient scribe for clinic note documentation during this visit. Discussion Notes During the visit, I discussed the patient's current health status and management plans, including the continuation of diabetes medications with a goal to lower hemoglobin A1c. We talked about increasing the semaglutide dose for weight loss, pending insurance approval, and maintaining lisinopril for hypertension. I recommended a referral to a urologist for further evaluation of the renal lesion and emphasized the importance of follow-up imaging. We also discussed lifestyle modifications, including diet and exercise, to manage hypercholesterolemia and hepatic steatosis. The patient was advised to continue citalopram for anxiety and to explore sugar alternatives to manage cravings. Patient Instructions - Continue current diabetes medications and aim to lower hemoglobin A1c to less than 6.5%. - Increase semaglutide dose for weight loss, pending insurance approval. - Maintain lisinopril 40 mg daily for hypertension. - Follow a healthy diet and exercise regularly to manage cholesterol and liver health. - Follow up with a urologist for renal lesion evaluation. - Continue citalopram for anxiety management. - Reduce sugar intake and consider sugar alternatives. Orders: Orders AMB Hemoglobin A1c Today E11.65 - Type 2 diabetes mellitus with hyperglycemia Referrals Nutrition/Dietitian Referral E11.65 - Type 2 diabetes mellitus with hyperglycemia Urology Referral N28.1 - Cyst of kidney, acquired Medications: New semaglutide (weight loss) (Wegovy) 2.4 mg (0.75 mL) subcut QWEEK 3 mL 3RF E66.9 - Obesity, unspecified Discontinued glipizide ER Discontinued Reason: Doctor's Order 10 mg PO DAILY 90 tabs 1RF E11.65 - Type 2 diabetes mellitus with hyperglycemia
== END 2024-08-18 14:05 | disposition home or self-care (01) ==
LOC: HO.HMCH 12:53
PROVIDERS: PCP Internal Medicine; Visit Provider Internal Medicine
DX: E11.65 Type 2 diabetes mellitus with hyperglycemia (principal); F41.1 Generalized anxiety disorder; K21.9 Gastro-esophageal reflux disease without esophagitis; N28.1 Cyst of kidney, acquired; Z87.891 Personal history of nicotine dependence; I10 Essential (primary) hypertension; E78.00 Pure hypercholesterolemia, unspecified; E66.9 Obesity, unspecified

== ENCOUNTER → 2024-08-18 12:52 | Outpatient (BNVA) | payer OTHER, SELFPAY | PROVIDERS: PCP Internal Medicine; Visit Provider Internal Medicine | DX: F41.1 Generalized anxiety disorder (principal); N28.1 Cyst of kidney, acquired; E11.65 Type 2 diabetes mellitus with hyperglycemia; K21.9 Gastro-esophageal reflux disease without esophagitis; I10 Essential (primary) hypertension; E78.00 Pure hypercholesterolemia, unspecified; E66.9 Obesity, unspecified; Z68.34 Body mass index [BMI] 34.0-34.9, adult; Z87.891 Personal history of nicotine dependence | CPT/HCPCS: 83036; 96127; 99212 ==

== ENCOUNTER 2024-09-26 10:18 | Outpatient (AMB) | payer OTHER, SELFPAY ==
[2024-09-26 10:26] VITALS: BMI 34.5
--- NOTE | 2024-09-26 10:26 | A.OFFVIS_ITS ---
VS Expanded 09/26/24 10:26 10/11/24 08:25 Height 6 ft 6 ft Weight 254 lb 6.615 oz 254 lb BMI 34.5 34.4 Intake Visit Reasons: Type 2 diabetes mellitus with hyperglycemia Allergies metformin Adverse Reaction (Intermediate, Verified 08/18/24 13:03) Diarrhea Nutrition Presentation Details: Pt presents for MNT for T2DM Pt reports not having meal routine and have increased appetite, particularly at night B: 7-8 am coffee with sugar 2 and 2% milk L: snacks (crackers, breads, fruit , fritter) D: rice/beans/chicken, water, diet soda, reg soda snack : sand, rice/chicken physical activity: ADL etoh/smoking:denies food frequency fruits: 0-5/d ve-4 x/wk fish: 0-1/wk dairy: 3+ beverages:w ater, coffee, juices soda > 80 oz/d a1c 6.2% on 08/31 BS Monitoring Most Recent Diabetes Results: Microalb/Creat Ratio, (<30) 51.2 ug/mg cr H 05/13/24 Cholesterol, (<200) 171 mg/dL 05/13/24 HDL Cholesterol, (>40) 34 mg/dL L 05/13/24 Triglycerides, (<150) 225 mg/dL H 05/13/24 Creatinine, (0.5-1.4) 0.91 mg/dL 05/13/24 BUN, (9-16) 10 mg/dL 05/13/24 Sodium, (135-145) 137 mmol/L 05/13/24 Potassium, (3.3-5.1) 4.3 mmol/L 05/13/24 Chloride, (96-108) 103 mmol/L 05/13/24 Carbon Dioxide, (22-29) 27 mmol/L 05/13/24 Calcium, (8.4-10.2) 9.5 mg/dL 05/13/24 AST, (5-37) 54 U/L H 05/13/24 ALT, (0-40) 111 U/L H 05/13/24 Total Protein, (6.5-8.0) 8.5 g/dL H 05/13/24 Albumin, (3.5-5.0) 4.4 g/dL 05/13/24 YWA-Ecxwfnq-Lb.Jeor Equation Height: 6 ft Weight: 254 lb Resting Metabolic Rate: 2062.81 Calculated Activity Level: Sedentary Calories Needed to Maintain Weight: 2475.37 Diagnosis Nutrition problem #1: altered nutrition labs (elevated Tg) As related to (etiology) #1: diagnosis As evidenced by (sign/symptom) #1: abnormal lab values (Tg>150) [facility] Medical History (Updated 09/26/24 @ 10:[address], LDN) Renal mass of unknown nature Renal cyst Chronic constipation Colon cancer screening Encounter for screening colonoscopy Lumbar degenerative disc disease Vitamin D deficiency Tobacco abuse GERD (gastroesophageal reflux disease) Hypertension Hypercholesterolemia Obesity (BMI 30-39.9) Surgical History History of rectal surgery Family History Father Lung cancer Alcohol abuse Social History Housing: House Alcohol intake: never Patient Tobacco Use Status: Former Tobacco user Tobacco use type: Cigarette Cigarette Packs Per Day: 1 e-Cigarette/Vaping Use: Never Used Second Hand Smoke Exposure: Yes service: No Current occupational status: employed Cognitive needs: No Hearing needs: No Vision needs: Yes (reading glasses) Assessment & Plan Assessment & Plan (1) Type 2 diabetes mellitus with hyperglycemia: Code(s): E11.65 - Type 2 diabetes mellitus with hyperglycemia Category: Medical Qualifiers: Diabetes mellitus half-way insulin use: without half-way use Qualified Code(s): E11.65 - Type 2 diabetes mellitus with hyperglycemia Plan: Wt: 127 Kg ( 09/30 ) Est kcal needs as per MSJ: 2500 (40% carb, 30% protein/fat) Est fluid needs as per 25-30 ml/d: 3800 Est prot per day as per 1 g/kg bw: 130 Recommend fiber intake : 8-10 g per day and gradually increase to 25-28 g per day for women and 35-38 g for men or as tolerated Recommend sodium intake per day : less than 2000 mg Educated patient on: ( R = reviewed V = verbalizes understanding N/R = needs review N/A = not applicable * Food sources of carbohydrate, adequate serving sizes and its role in various health conditions: R * Differences between complex carbohydrates a simple carbohydrates, role of fiber in diet: R * Lean protein sources of foods: R * Differences between types of fats and role in diet (mono on saturated fat fatty acids, saturated fatty acids, trans fats): R V N/R * Food sources of sodium in salt and healthy modifications for heart health in kidney health: R V R/V * Vitamins and minerals: R V N/R * Healthy plate method concept: R V N/R * Physical activity: Benefits a precaution: R V N/R * Hypoglycemia protocol (rule of 15): R V N/R * Dietary prevention of Hyperglycemia: R Patient Instructions: Choose whole grain breads (100% whole grains,) - see list of ideas of sandwiches Have coconut water in place of reg soda , choosing beverages lower in sugar Choose a serving of protein and less than 30 g carb : ex : yogurt and fruit or 1/2 sand on whole wheat and cup o fmilk Coding Level of Care Code Nutr Indiv Intake (28815) Diagnoses Type 2 diabetes mellitus with hyperglycemia, without long-term current use of insulin E11.65 Diabetes mellitus half-way insulin use: without half-way use Time Spent (min) 30
[2024-10-11 08:25] VITALS: BMI 34.4
== END 2024-09-26 11:13 | disposition home or self-care (01) ==
LOC: HO.ENCR 10:19
PROVIDERS: PCP Internal Medicine; Visit Provider Dietitian, Registered
DX: E11.65 Type 2 diabetes mellitus with hyperglycemia (principal)

== ENCOUNTER → 2024-09-26 10:18 | Outpatient (BNVA) | payer OTHER, SELFPAY | PROVIDERS: PCP Internal Medicine; Visit Provider Dietitian, Registered | DX: E11.65 Type 2 diabetes mellitus with hyperglycemia (principal) | CPT/HCPCS: 97802 ==

== ENCOUNTER 2024-10-28 10:31 | Outpatient (AMB) | payer OTHER, SELFPAY ==
--- NOTE | 2024-10-28 11:46 | A.OFFVIS_ITS ---
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 Patient has anxiety will need NT anxiety lytic prior to CAT scan MATT has been previously evaluated for complex renal cyst. He had a follow- up renal ultrasound. The size of the cyst is essentially unchanged there is a peripheral calcification on the rim of the cyst with internal echoes and further evaluation is indicated for further evaluation. The patient denies abdominal pain gross hematuria. The patient denies is obstructive or irritative voiding symptoms. CoMorbidity Nicotine use. 02/20/22 - Telehealth visit: Video attempted-- FU post MRI abd -- I discussed results with the patient the right kidney cyst has decreased in size and does not have any solid worrisome features it is a simple proteinaceous cyst and dedicated follow-up is not indicated at this time. The patient denies family history of prostate cancer he will continue follow-up with his PCP with routine PSA screening. Plan follow-up with Urology office p.r.n. Imaging: MRI 02/13/22- Right kidney no evidence of solid enhancing tissuse; simple proteinaceous cyst. Renal U/S Findings- 12/27/21: 1.7 x 1.6 x 1.8 cm hypoechoic lesion in the lower pole of the right kidney with peripheral calcification and acoustic shadowing. This has internal echoes and is uncertain whether this represents a complex cyst or solid lesion. [facility] Medical History Renal mass of unknown nature Renal cyst Chronic constipation Colon cancer screening Encounter for screening colonoscopy Lumbar degenerative disc disease Vitamin D deficiency Tobacco abuse GERD (gastroesophageal reflux disease) Hypertension Hypercholesterolemia Obesity (BMI 30-39.9) Surgical History History of rectal surgery Family History Father Lung cancer Alcohol abuse Social History Housing: House Alcohol intake: never Patient Tobacco Use Status: Former Tobacco user Tobacco use type: Cigarette Cigarette Packs Per Day: 1 e-Cigarette/Vaping Use: Never Used Second Hand Smoke Exposure: Yes service: No Current occupational status: employed Cognitive needs: No Hearing needs: No Vision needs: Yes (reading glasses) Results AMB Urinalysis, Automated UA Leukoctes 0 Woo/uL Last Edit by Anastasiia Peters on 10/28/24 17:17 UA Nitrite Negative Last Edit by Anastasiia Peters on 10/28/24 17:17 UA Urobilinogen 17 mg/dL Last Edit by Anastasiia Peters on 10/28/24 17:17 UA Protein 1.0 mg/dL Last Edit by Anastasiia Peters on 10/28/24 17:17 UA pH 6.0 Last Edit by Anastasiia Peters on 10/28/24 17:17 UA Blood 0 Stanley/uL Last Edit by Anastasiia Peters on 10/28/24 17:17 UA Specific [place] 1.020 Last Edit by Anastasiia Peters on 10/28/24 17:17 UA Ketone Negative Last Edit by Anastasiia Peters on 10/28/24 17:17 UA Bilirubin 0 mg/dL Last Edit by Anastasiia Peters on 10/28/24 17:17 UA Glucose 0 mg/dL Last Edit by Anastasiia Peters on 10/28/24 17:17 Assessment & Plan Assessment & Plan Orders: Orders AMB Urinalysis Automated Today Z13.9 - Encounter for screening, unspecified Coding
== END 2024-10-28 12:48 | disposition home or self-care (01) ==
LOC: HO.HUSH 10:32
PROVIDERS: PCP Internal Medicine; Visit Provider Urology
DX: Z13.9 Encounter for screening, unspecified (principal)

== ENCOUNTER → 2024-10-28 10:31 | Outpatient (BNVA) | payer OTHER, SELFPAY | PROVIDERS: PCP Internal Medicine; Visit Provider Urology | DX: N28.1 Cyst of kidney, acquired (principal) | CPT/HCPCS: 81003; 99212 ==

== ENCOUNTER 2024-12-01 09:10 | Outpatient (AMB) | payer OTHER, SELFPAY ==
[2024-12-01 09:16] VITALS: BP 134/70; PULSE 81; O2SAT 98; BMI 34.4
--- NOTE | 2024-12-01 09:16 | A.OFFPC_ITS ---
Vital Signs 12/01/24 09:16 Height 6 ft Weight 254 lb BMI 34.4 BP 134/70 Blood Pressure Location Lt brachial Position Sitting Pulse 81 Pulse Source Pulse Oximeter Pulse Oximetry (%) 98 Oxygen Delivery Method Room Air Intake Visit Reasons: DM Allergies metformin Adverse Reaction (Intermediate, Verified 12/01/24 09:16) Diarrhea Tobacco use date assessed: 08/18/24 Dental Screening Dental Screen Date: 06/14/24 [facility] [place] Medical History Renal mass of unknown nature Renal cyst Chronic constipation Colon cancer screening Encounter for screening colonoscopy Lumbar degenerative disc disease Vitamin D deficiency Tobacco abuse GERD (gastroesophageal reflux disease) Hypertension Hypercholesterolemia Obesity (BMI 30-39.9) Surgical History History of rectal surgery Family History Father Lung cancer Alcohol abuse Social History Housing: House Alcohol intake: never Patient Tobacco Use Status: Former Tobacco user Tobacco use type: Cigarette Cigarette Packs Per Day: 1 e-Cigarette/Vaping Use: Never Used Second Hand Smoke Exposure: Yes service: No Current occupational status: employed Cognitive needs: No Hearing needs: No Vision needs: Yes (reading glasses) Questionnaire Thrive Questionnaire Date Thrive assessed: 06/14/24 STEPH-7 AMB Questionnaire STEPH-7 Date STEPH - 7 assessed: 06/14/24 Source: Developed by Drs. Ezequiel Esqueda, Alejandra Rodriguez, Neel Yanez and colleagues, with an educational jayme from [employer]. Physical exam (Primary Care) Vital Signs: Last Vital Signs Pulse 81 12/01/24 09:16 BP 134/70 12/01/24 09:16 Pulse Ox 98 12/01/24 09:16 Oxygen Delivery Method Room Air 12/01/24 09:16 BMI result Body Mass Index 34.4 Tobacco/Smoking Status: Tobacco use Status Tobacco use date assessed 08/18/24 12/01/24 09:17 Patient Tobacco Use Status Former Tobacco user 12/01/24 09:17 Tobacco use type Cigarette 12/01/24 09:17 e-Cigarette/Vaping Use Never Used 12/01/24 09:17 Thrive Assessment: Date of Thrive Assessment Date Thrive assessed 06/14/24 12/01/24 09:17 Const General: alert; No acute distress Eyes Conjunctivae: conjunctivae normal Resp Auscultation: clear to auscultation bilaterally Cardio Rate: regular rate Rhythm: regular rhythm GI Inspection: Yes normal to inspection Extrem General: Yes normal to inspection and No edema Results AMB Hemoglobin A1c AMB Hemoglobin A1c 6.8 % Last Edit by Yennifer Natarajan CMA on 12/01/24 09 :36 Results Reviewed Results Reviewed: Laboratory Last Values Hgb A1c (Clinic) 6.8 % (4.0-6.0) H 12/01/24 09:17 Coding Level of Care Code Est Pt Level 4 (64768) Complex EM visit Add On G2211 Diagnoses Type 2 diabetes mellitus with hyperglycemia, without long-term current use of insulin E11.65 Diabetes mellitus residential insulin use: without residential use Essential hypertension I10 Hypertension type: essential hypertension Hypercholesterolemia E78.00 Obesity (BMI 30-39.9) E66.9 Gastroesophageal reflux disease without esophagitis K21.9 Esophagitis presence: without esophagitis Fatty liver K76.0 Complex renal cyst N28.1 Generalized anxiety disorder F41.1 Assessment & Plan Assessment & Plan (1) Type 2 diabetes mellitus with hyperglycemia: Comment: eye and lasik Code(s): E11.65 - Type 2 diabetes mellitus with hyperglycemia Category: Medical Qualifiers: Diabetes mellitus residential insulin use: without residential use Qualified Code(s): E11.65 - Type 2 diabetes mellitus with hyperglycemia Plan: Decrease the amount of carbohydrate intake, pasta, bread, rice and potatoes are all sugar and that is aside from all the sweet stuff, remember that fruits are good but they are Sweet also. Hemoglobin A1c goal of less than 6.5. Patient is on Jardiance 25 mg once a day semaglutide at 2 mg once a week (2) Hypertension: Code(s): I10 - Essential (primary) hypertension Category: Medical Qualifiers: Hypertension type: essential hypertension Qualified Code(s): I10 - Essential (primary) hypertension Plan: Continue with blood pressure medication. Decrease salt intake and exercise on lisinopril 40 mg once a day (3) Hypercholesterolemia: Code(s): E78.00 - Pure hypercholesterolemia, unspecified Category: Medical Plan: Avoid fried foods, chicken skin, eggs, butter margarine, pastries and meat. Be it pork or beef they have a lot of cholesterol LDL goal of less than 100 and triglyceride of less than 150 patient is presently diet controlled (4) Obesity (BMI 30-39.9): Code(s): E66.9 - Obesity, unspecified Category: Medical Plan: Diet and exercise (5) GERD (gastroesophageal reflux disease): Comment: Reflux precautions reviewed EGDr/o PUD, nonulcer dyspepsia, esophagitis other endoscopic findings to account for her symptoms Code(s): K21.9 - Gastro-esophageal reflux disease without esophagitis Category: Medical Qualifiers: Esophagitis presence: without esophagitis Qualified Code(s): K21.9 - Gastro-esophageal reflux disease without esophagitis Plan: Avoid the foods that causes that usually spicy foods, tomato products, juices, coffee, soda and foods that your sensitive to. After eating do not lie down, allow 3-4 hours before in lie down. And keep the head of bed above 30 degrees to avoid the acid from going up. (6) Fatty liver: Code(s): K76.0 - Fatty (change of) liver, not elsewhere classified Category: Medical Plan: Low-fat diet and exercise (7) Complex renal cyst: Comment: 2021 patient did see Urology no worrisome features. July 2024Poor enhancement of the kidneys on postcontrast images, limiting evaluation. Ill-defined possibly enhancing 1.4 cm lesion at the lower pole of the right kidney. This does not have the characteristics of a simple cyst, but is smaller than on the prior study. A previous ultrasound dated 02/08/2013 demonstrated a 3.0 cm simple cyst in this region, and findings may represent a partially collapsed cyst. Continued follow-up is recommended. 2. Hepatic steatosis. 3. Splenomegaly. Code(s): N28.1 - Cyst of kidney, acquired Category: Medical Plan: Patient has seen Urology and has advised MRI (8) Generalized anxiety disorder: Comment: Patient did talk to the therapist but due to cost has stop(April 2022) Code(s): F41.1 - Generalized anxiety disorder Category: Medical Plan: Continue with present medication on trazodone and alprazolam and citalopram Plan History of Present Illness The patient is a 49-year-old male presenting with a follow-up for chronic conditions including diabetes, hypertension, and hypercholesterolemia. The patient has a history of obesity, which has been managed with dietary modifications and exercise, resulting in a 16-pound weight loss since February. He has a history of hypertension, currently managed with lisinopril 40 mg daily. The patient has hypercholesterolemia, with a recent LDL cholesterol level of 92 mg/dL and triglycerides at 225 mg/dL. He is currently managing his cholesterol levels through diet and exercise, with a goal of maintaining LDL below 100 mg/dL and triglycerides below 150 mg/dL. The patient has a history of gastroesophageal reflux disease (GERD), managed with a low-fat diet and exercise. The patient has lumbar degenerative disc disease, which has been a chronic issue. The patient has diabetes mellitus, with a recent hemoglobin A1c of 6.8%. He is currently on Jardiance 25 mg daily and semaglutide 2 mg weekly, with a goal to reduce A1c to below 6.5%. The patient has generalized anxiety disorder, managed with trazodone, alprazolam, and citalopram. The patient has a history of nicotine dependence, which he successfully quit in 2021. The patient is being followed by urology for a kidney cyst and has been advised to undergo an MRI for further evaluation. Recent blood work revealed mild thrombocytopenia with a platelet count of 115, elevated liver enzymes, and proteinuria. Health Maintenance - Dietary modifications and exercise for weight management - Regular follow-up with urology for kidney cyst monitoring - Blood pressure management with lisinopril - Cholesterol management through diet and exercise - Diabetes management with Jardiance and semaglutide - Anxiety management with trazodone, alprazolam, and citalopram Social History - History of nicotine dependence, quit in 2021 - Dietary habits include efforts to reduce sugar intake and increase water consumption - Exercise habits include efforts to incorporate regular physical activity Review of Systems - Cardiovascular: Reports hypertension, denies chest pain or palpitations - Endocrine: Reports diabetes mellitus, denies recent hypoglycemic episodes - Gastrointestinal: Reports gastroesophageal reflux disease, denies abdominal pain - Musculoskeletal: Reports lumbar degenerative disc disease, denies recent exac erbations - Psychiatric: Reports generalized anxiety disorder, denies recent panic attacks Physical Exam Results - Labs: Mild thrombocytopenia with platelet count of 115 - Labs: Elevated liver enzymes - Labs: Proteinuria - Labs: Hemoglobin A1c of 6.8% - Labs: LDL cholesterol level of 92 mg/dL, triglycerides at 225 mg/dL Plan Patient was informed and verbally consented to the use of an ambient scribe for clinic note documentation during this visit. 1. Obesity The patient has been managing obesity through dietary modifications and exercise, resulting in a 16-pound weight loss since February. Continued emphasis on lifestyle changes is recommended to further reduce weight and improve overall health. 2. Essential Hypertension Hypertension is currently managed with lisinopril 40 mg daily. The patient is advised to continue monitoring blood pressure and adhere to medication regimen. 3. Hypercholesterolemia The patient is managing hypercholesterolemia through diet and exercise, with a recent LDL cholesterol level of 92 mg/dL and triglycerides at 225 mg/dL. The goal is to maintain LDL below 100 mg/dL and triglycerides below 150 mg/dL. 4. Diabetes Mellitus Diabetes is managed with Jardiance 25 mg daily and semaglutide 2 mg weekly, with a recent hemoglobin A1c of 6.8%. The goal is to reduce A1c to below 6.5% through medication adherence and lifestyle modifications. 5. Kidney Cyst The patient is being followed by urology for a kidney cyst and has been advised to undergo an MRI for further evaluation. Continued monitoring and follow-up [facility] urology are recommended. 6. Generalized Anxiety Disorder Anxiety is managed with trazodone, alprazolam, and citalopram. The patient is advised to continue current medications and consider lifestyle modifications to reduce anxiety. Discussion Notes During the visit, we discussed the management of the patient's chronic conditions, including diabetes, hypertension, and hypercholesterolemia. We emphasized the importance of lifestyle modifications, such as dietary changes and increased physical activity, to manage obesity and improve overall health. The patient was advised to continue current medications for diabetes and anxiety and to follow up with urology for the kidney cyst evaluation. Patient Instructions - Continue current medications as prescribed. - Follow a low-fat diet and engage in regular exercise. - Monitor blood pressure regularly and report any significant changes. - Schedule and attend follow-up appointments with urology for kidney cyst evaluation. - Avoid sugary drinks and increase water intake. Orders: Orders AMB Hemoglobin A1c Today Z13.9 - Encounter for screening, unspecified Medications: Discontinued semaglutide (weight loss) ([place]egovlizette) Discontinued Reason: Doctor's Order 2.4 mg (0.75 mL) subcut QWEEK 3 mL 3RF E66.9 - Obesity, unspecified
== END 2024-12-01 10:11 | disposition home or self-care (01) ==
LOC: HO.HMCH 09:11
PROVIDERS: PCP Internal Medicine; Visit Provider Internal Medicine
DX: E11.65 Type 2 diabetes mellitus with hyperglycemia (principal); I10 Essential (primary) hypertension; E66.9 Obesity, unspecified; Z68.34 Body mass index [BMI] 34.0-34.9, adult; E78.00 Pure hypercholesterolemia, unspecified; K21.9 Gastro-esophageal reflux disease without esophagitis; K76.0 Fatty (change of) liver, not elsewhere classified; N28.1 Cyst of kidney, acquired; F41.1 Generalized anxiety disorder

== ENCOUNTER → 2024-12-01 09:10 | Outpatient (BNVA) | payer OTHER, SELFPAY | PROVIDERS: PCP Internal Medicine; Visit Provider Internal Medicine | DX: E11.65 Type 2 diabetes mellitus with hyperglycemia (principal); I10 Essential (primary) hypertension; E78.00 Pure hypercholesterolemia, unspecified; E66.9 Obesity, unspecified; Z68.34 Body mass index [BMI] 34.0-34.9, adult; K21.9 Gastro-esophageal reflux disease without esophagitis; K76.0 Fatty (change of) liver, not elsewhere classified; R16.1 Splenomegaly, not elsewhere classified; N28.1 Cyst of kidney, acquired; F41.1 Generalized anxiety disorder; Z79.84 Long term (current) use of oral hypoglycemic drugs; Z79.899 Other long term (current) drug therapy | CPT/HCPCS: 83036; 99212 ==

== ENCOUNTER 2025-01-21 14:55 | Outpatient (REF) | payer OTHER, SELFPAY ==
--- NOTE | ~2025-01-21 | MR_ITS ---
CLINICAL HISTORY: N28.1 - Cyst of kidney, acquired MR abdomen with and without gadolinium Comparison: None provided Findings: The lung bases are unremarkable. There is a 1 cm nonenhancing well-defined lesion in the lower pole of the right kidney corresponding to the ill-defined hypodensity seen on CT. There is a associated cortical scar adjacent to the lesion. The lesion is isointense to the renal medulla on T2 weighted sequences. The lesion is not clearly identifiable on arterial phase post contrasted images but is well seen on the venous phase sequences. The lesion may communicate with a lower pole calyx though this is not definitive as a delayed sequence was not obtained on either the MRI or CT. There is splenomegaly. The rest of the solid organs are unremarkable. The visualized bowel is unremarkable. No ascites. The bones and soft tissues are normal. IMPRESSION: 1. Nonenhancing well-defined 1 cm lesion lower pole right kidney associated with an adjacent cortical scar and possibly communicating with the collecting system. As it is isointense to the renal medulla on T2 weighted sequences the lesion likely contains proteinaceous content. I believe the lesion is benign however a six-month follow-up MRI should be obtained to demonstrate stability. 2. Splenomegaly. This document has been electronically signed by: Joselito Sanches MD on 01/24/2025 05:43:05
== END 2025-01-21 14:56 | disposition home or self-care (01) ==
LOC: HO.MRI 14:55
PROVIDERS: PCP Internal Medicine; Visit Provider Urology
DX: N28.1 Cyst of kidney, acquired (principal)
CPT/HCPCS: 74183; A9585

== ENCOUNTER → 2025-01-21 15:11 | Outpatient (BNV) | payer OTHER, SELFPAY | PROVIDERS: PCP Internal Medicine; Visit Provider Radiology Diagnostic Radiology | DX: N28.1 Cyst of kidney, acquired (principal); R16.1 Splenomegaly, not elsewhere classified | CPT/HCPCS: 74183 ==

== ENCOUNTER → 2025-01-23 11:27 | Outpatient (BNVA) | payer OTHER, SELFPAY | PROVIDERS: PCP Internal Medicine; Visit Provider Urology | DX: N28.1 Cyst of kidney, acquired (principal) | CPT/HCPCS: 81003 ==

== ENCOUNTER 2025-01-30 11:25 | Outpatient (AMB) | payer OTHER, SELFPAY ==
--- NOTE | 2025-01-30 09:52 | MHC.OFFVIS ---
Intake Visit Reasons: 3m/MRI Intake Note: Patient presents today via telehealth for a 3m follow up with MRI 01/24 Abdomen MRI Urology Medications: none Blood thinners: none Antibiotic Allergy: None Seedling Puller Required: No Allergies metformin Adverse Reaction (Intermediate, Verified 03/10/25 14:07) Diarrhea HPI Comments Details: 01/30/25-- History of Present Illness The patient is a 49-year-old individual presenting for follow-up on a renal cyst. The renal cyst was identified during a previous evaluation, and recent imaging has confirmed that it is benign, with no concerning features. The cyst contains a small amount of protein, but this is not considered worrisome. A follow-up ultrasound is planned for one year to monitor the cyst's size and ensure stability. Results - Imaging: Renal cyst confirmed as benign with a small amount of protein present Plan 1. Renal Cyst, Complex - Plan to monitor with a follow-up ultrasound in one year to assess size and stability. 10/28/24--Haseeb is a 49 year old male. I reviewed CT scan 08/04/24 right indeterminate renal cystic lesion. See Report detailed in result section. Will check an MRI for further evaluation. Patient has anxiety and will need an antianxiety mediation for day of MR procedure. Results: CTAP w/wo IV contrast-- 08/04/24--Poor enhancement of the kidneys on postcontrast images, limiting evaluation. Ill-defined possibly enhancing 1.4 cm lesion at the lower pole of the right kidney. This does not have the characteristics of a simple cyst, HASEEB has been previously evaluated for complex renal cyst. He had a follow-up renal ultrasound. The size of the cyst is essentially unchanged there is a peripheral calcification on the rim of the cyst with internal echoes and further evaluation is indicated for further evaluation. The patient denies abdominal pain gross hematuria. The patient denies is obstructive or irritative voiding symptoms. CoMorbidity Nicotine use. 02/20/22 - Telehealth visit: Video attempted-- FU post MRI abd -- I discussed results with the patient the right kidney cyst has decreased in size and does not have any solid worrisome features it is a simple proteinaceous cyst and dedicated follow-up is not indicated at this time. The patient denies family history of prostate cancer he will continue follow-up with his PCP with routine PSA screening. Plan follow-up with Urology office p.r.n. Imaging: MRI 02/13/22- Right kidney no evidence of solid enhancing tissuse; simple proteinaceous cyst. Renal U/S Findings- 12/27/21: 1.7 x 1.6 x 1.8 cm hypoechoic lesion in the lower pole of the right kidney with peripheral calcification and acoustic shadowing. This has internal echoes and is uncertain whether this represents a complex cyst or solid lesion. [facility] Medical History Renal mass of unknown nature Renal cyst Chronic constipation Colon cancer screening Encounter for screening colonoscopy Lumbar degenerative disc disease Vitamin D deficiency Tobacco abuse GERD (gastroesophageal reflux disease) Hypertension Hypercholesterolemia Obesity (BMI 30-39.9) Surgical History History of rectal surgery Family History Father Lung cancer Alcohol abuse Social History Housing: House Alcohol intake: never Patient Tobacco Use Status: Former Tobacco user Tobacco use type: Cigarette Cigarette Packs Per Day: 1 e-Cigarette/Vaping Use: Never Used Second Hand Smoke Exposure: Yes service: No Current occupational status: employed Cognitive needs: No Hearing needs: No Vision needs: Yes (reading glasses) Review of Systems Const All systems reviewed & are unremarkable except as noted in HPI and below Reports no additional complaints Eyes Reports no additional complaints ENT Reports no additional complaints Card Reports no additional complaints Resp Reports no additional complaints GI Reports no additional complaints Reports as per HPI Musc Reports no additional complaints Skin/Breast Reports system reviewed and no additional complaints, except as documented Neuro Reports no additional complaints Psych Reports no additional complaints Endo Reports no additional complaints Blayne/Lymph Reports no additional complaints Aller/Immun Reports no additional complaints Telehealth Telehealth Telehealth Platform: [facility] Location of provider rendering services: practice address Location of patient: address on file Patient Identification confirmed using: Name, : Yes Telehealth method: video Patient verbally consented to treatment: Yes Patient verbally consented to billing insurance company: Yes Patient informed of any privacy concerns related to visit: Yes Results Reviewed Results Reviewed: Date of Service: 01/21/25 CLINICAL HISTORY: N28.1 - Cyst of kidney, acquired MR abdomen with and without gadolinium Comparison: None provided Findings: The lung bases are unremarkable. There is a 1 cm nonenhancing well-defined lesion in the lower pole of the right kidney corresponding to the ill-defined hypodensity seen on CT. There is a associated cortical scar adjacent to the lesion. The lesion is isointense to the renal medulla on T2 weighted sequences. The lesion is not clearly identifiable on arterial phase post contrasted images but is well seen on the venous phase sequences. The lesion may communicate with a lower pole calyx though this is not definitive as a delayed sequence was not obtained on either the MRI or CT. There is splenomegaly. The rest of the solid organs are unremarkable. The visualized bowel is unremarkable. No ascites. The bones and soft tissues are normal. IMPRESSION: 1. Nonenhancing well-defined 1 cm lesion lower pole right kidney associated with an adjacent cortical scar and possibly communicating with the collecting system. As it is isointense to the renal medulla on T2 weighted sequences the lesion likely contains proteinaceous content. I believe the lesion is benign however a six-month follow-up MRI should be obtained to demonstrate stability. 2. Splenomegaly. Date of Service: 08/04/24 EXAMINATION: CT ABDOMEN WITHOUT THEN WITH IV CONTRAST HISTORY: COMPLEX RENAL CYST COMPARISON: Comparison is made with the prior examination dated 09/01/2018. Correlation is also made with a renal ultrasound dated 12/27/2021. TECHNIQUE: CT scan of the abdomen was performed before and after the intravenous administration of 85 mL Omnipaque 350. Coronal and sagittal reformatted images were generated and reviewed. Oral contrast material was not administered per department protocol. This CT exam was performed with one or more of the following dose reduction techniques: automated exposure control, adjustment of the mA and/or kV according to patient size, use of iterative reconstruction technique. DLP: 844 mGy-cm ABDOMEN: LOWER CHEST: The visualized lung bases are clear. There is no pleural effusion. CARDIOVASCULATURE: The heart is normal in size. There is no pericardial effusion. LIVER: The liver is normal in size and contour, but demonstrates diffusely decreased attenuation, consistent with steatosis. No liver mass is identified. The hepatic and portal veins are patent. GALLBLADDER / BILE DUCTS: The gallbladder is unremarkable. There is no intra or extrahepatic biliary ductal dilatation. SPLEEN: The spleen is enlarged. No focal splenic lesion is identified. PANCREAS: The pancreas is unremarkable in appearance. ADRENAL GLANDS: Within normal limits. KIDNEYS/RETROPERITONEUM: No renal calculi are identified. There is no hydronephrosis. There is poor enhancement of the kidneys on postcontrast imaging. There is an ill-defined hypoechoic focus at the lower pole of the right kidney measuring approximately 1.4 cm in size. This appears smaller than on the prior study (previously 1.9 cm). The density of the lesion is approximately 11.6 HU on the unenhanced examination and 27.7 HU on the postcontrast study. This is not clearly a simple cyst. LYMPH NODES: No abdominal or pelvic lymphadenopathy. VASCULATURE: The abdominal aorta is normal in caliber. MESENTERY/PERITONEUM: No free fluid. No masses. There is no free intraperitoneal gas. STOMACH: The stomach is unremarkable. SMALL BOWEL: The visualized small bowel is normal in caliber. COLON: The visualized portion of the colon is unremarkable. APPENDIX: Normal. BONES / SOFT TISSUES: No suspicious bony or soft tissue abnormalities. IMPRESSION: 1. Poor enhancement of the kidneys on postcontrast images, limiting evaluation. Ill-defined possibly enhancing 1.4 cm lesion at the lower pole of the right kidney. This does not have the characteristics of a simple cyst, but is smaller than on the prior study. A previous ultrasound dated 02/08/2013 demonstrated a 3.0 cm simple cyst in this region, and findings may represent a partially collapsed cyst. Continued follow-up is recommended. Date of Service: 12/27/21 EXAMINATION: US RETROPERITONEAL LIMITED (RENAL ONLY) CLINICAL INFORMATION: Cyst of kidney, acquired. COMPARISON: Ultrasound abdomen complete 03/12/2021. CT abdomen and pelvis 09/01/2018. TECHNIQUE: Real-time imaging of the kidneys.? FINDINGS: RIGHT KIDNEY: 12.2 x 6.8 x 7.2 cm (SAG x AP x TRV). The kidney is normal in size, contour, and echogenicity. Renal cortical thickness is normal. There is a 1.7 x 1.6 x 1.8 cm hypoechoic lesion in the lower pole. This has peripheral rim calcification and acoustic shadowing. This contains internal echoes and it is uncertain whether this represents a complex cystic or solid lesion. This does not appear appreciably changed in size from prior exams. No renal calculi or hydronephrosis. LEFT KIDNEY: 12.8 x 7.9 x 6.2 cm (SAG x AP x TRV). The kidney is normal in size, contour, and echogenicity. Renal cortical thickness is normal. No calculi or focal parenchymal lesions. No hydronephrosis. IMPRESSION: 1.7 x 1.6 x 1.8 cm hypoechoic lesion in the lower pole of the right kidney with peripheral calcification and acoustic shadowing. This has internal echoes and is uncertain whether this represents a complex cyst or solid lesion. Follow-up CT or MR I of the kidneys with and without contrast recommended. Assessment & Plan Assessment & Plan (1) Renal cyst: Code(s): N28.1 - Cyst of kidney, acquired Category: Medical Plan Plan 1. Renal Cyst, Complex - Plan to monitor with a follow-up ultrasound in one year to assess size and stability. Patient Instructions: The patient had an opportunity to ask questions regarding treatment plan. The patient expressed understanding and agreement with the above treatment plan. The patient is aware they should contact our office by phone for worsening of their current condition or the appearance of new symptoms. Compliance is encouraged with any medications and followup testing that is ordered. It is a privilege to be allowed the opportunity to participate in the urologic care of your patient. If you have any questions or concerns regarding treatment for the above conditions please do not hesitate to contact me. The office telephone contact is [phone]. This note is constructed in part using voice recognition software. While every effort has been made to ensure accuracy daub color mixer errors may have been included. Yours sincerely, Heber Blackman MD Scribe Plan - Not visible on output: Patient was informed and verbally consented to the use of an ambient scribe for clinic note documentation during this visit. Coding Level of Care Code Tele Est Pt Level 3 (97294) Diagnoses Renal cyst N28.1
== END 2025-01-30 12:20 | disposition home or self-care (01) ==
LOC: HO.HUSH 11:25
PROVIDERS: PCP Internal Medicine; Visit Provider Urology
DX: N28.1 Cyst of kidney, acquired (principal)
CPT/HCPCS: 99213